=== PATIENT | female | born 1965 | race Caucasian/White ===

== ENCOUNTER → 2017-11-30 10:25 | Outpatient (CLI) | payer BC, SELFPAY | PROVIDERS: PCP Internal Medicine; Visit Provider Internal Medicine | DX: R07.89 Other chest pain (principal) | CPT/HCPCS: 93005 ==

== ENCOUNTER → 2017-12-06 09:43 | Outpatient (CLI) | payer BC, SELFPAY ==
--- NOTE | 2017-12-06 09:59 | XR_ITS ---
XR chest 2V HISTORY: ITS.REASON: LT CHEST PAIN,ASTHMA ORDERING PHYSICIAN: Jae Luz PATIENT AGE: 52 years COMPARISON: 01/06/2016 FINDINGS: The cardiomediastinal silhouette and pulmonary vascularity are within normal limits. There are slight increased markings in the left lower lobe which may be due to an area of atelectasis or infiltrate. Calcified nodes are present in the left perihilar region. There are degenerative changes in the thoracic spine with osteophyte formation. IMPRESSION: Patchy left lower lobe infiltrate
== END ==
PROVIDERS: PCP Internal Medicine; Visit Provider Internal Medicine
DX: R07.89 Other chest pain (principal); J45.909 Unspecified asthma, uncomplicated
CPT/HCPCS: 71046

== ENCOUNTER → 2018-08-12 15:31 | Outpatient (CLI) | payer BC, SELFPAY ==
--- NOTE | 2018-08-12 15:42 | CT_ITS ---
CT abdomen pelvis wo , REASON: LLQ PAIN,GROSS HEMATURIA, bilateral flank pain left greater than right with gross hematuria ORDERING PHYSICIAN: Jae Luz PATIENT AGE: 52 years COMPARISON: 02/18/2014 TECHNIQUE: Axial images obtained with sagittal and coronal reformats. All CT scans at the facility use one or more dose reduction, viz: automated exposure control, ma/kV adjustment per patient size (including targeted exams where dose is matched to indication, i.e. head), or iterative reconstruction technique. PROCEDURE: Oral Contrast: None IV Contrast: None . FINDINGS: Lower thorax: No acute finding The liver, gallbladder, spleen, adrenal glands, pancreas, and kidneys have an unremarkable unenhanced CT appearance. No renal or ureteral calculi. No hydronephrosis. No intestinal obstruction or free air. No evidence of appendicitis or diverticulitis. No pelvic mass abnormal fluid collection or focal inflammatory change of the pelvis. No urinary bladder stones. No acute bony findings. IMPRESSION: No acute abdominal or pelvic findings No evidence of renal or ureteral calculi
[2018-08-12 15:46] LABS: Basophils # 0.1 K/mm3 (0-0.2); Basophils % 1.1 % (0.1-2.0); Eosinophils # 0.4 K/mm3 (0.0-0.4); Eosinophils % 6.4 % (0.1-12.0); Hematocrit 43.1 % (37.0-47.0); Hemoglobin 14.4 g/dL (12.2-16.2); Lymphocytes # 1.7 K/mm3 (0.7-4.5); Lymphocytes % 28.2 % (10-50); Mean Corpuscular HGB Conc 33.3 g/dL (31.8-35.4); Mean Corpuscular Hemoglobin 28.6 pg (27.0-31.2); Mean Corpuscular Volume 85.9 fl (81-99); Mean Platelet Volume 7.3 fl (7.4-10.4); Monocytes # 0.3 K/mm3 (0.1-1.0); Monocytes % 4.6 % (1.7-9.3); Neutrophils # 3.7 K/mm3 (1.8-7.8); Neutrophils % 59.8 % (37.0-80.0); Platelet Count 203 K/mm3 (142-424); Red Blood Count 5.02 M/mm3 (4.20-5.40); Red Cell Distribution Width 13.8 % (11.5-17.5); White Blood Count 6.1 K/mm3 (4.8-10.8)
== END ==
PROVIDERS: Visit Provider Internal Medicine
DX: R10.32 Left lower quadrant pain (principal); R31.0 Gross hematuria
CPT/HCPCS: 36415; 74176; 85025

== ENCOUNTER 2019-08-29 11:29 | Observation (INO) ==
[2019-08-29 11:56] LABS: Microscopic, Urine URINE MICROSCOPIC (MICROSCOPIC)
[2019-08-29 11:59] LABS: Basophils # 0.1 K/mm3 (0-0.2); Basophils % 0.8 % (0.1-2.0); Eosinophils # 0.3 K/mm3 (0.0-0.4); Eosinophils % 4.8 % (0.1-12.0); Hematocrit 48.5 % (37.0-47.0); Hemoglobin 15.5 g/dL (12.2-16.2); Lymphocytes # 2.2 K/mm3 (0.7-4.5); Lymphocytes % 36.3 % (10-50); Mean Corpuscular Volume 87.1 fl (81-99); Mean Platelet Volume 7.5 fl (7.4-10.4); Monocytes # 0.3 K/mm3 (0.1-1.0); Monocytes % 4.6 % (1.7-9.3); Neutrophils # 3.3 K/mm3 (1.8-7.8); Neutrophils % 53.4 % (37.0-80.0); Platelet Count 247 K/mm3 (142-424); Red Blood Count 5.57 M/mm3 (4.20-5.40); Red Cell Distribution Width 14.6 % (11.5-17.5); White Blood Count 6.2 K/mm3 (4.8-10.8)
[2019-08-29 12:01] LABS: Appearance,Urine CLEAR (Clear); Bilirubin,Urine Negative (Negative); Blood, Urine TRACE-I (Negative); Color,Urine YELLOW (Yellow); Glucose,Urine (UA) Negative (Negative); Ketones,Urine Negative (Negative); Leukocyte Esterase,Urine Negative (Negative); Protein,Urine Negative (Negative); Specific Gravity, Urine 1.025 (1.005-1.030); Urobilinogen,Urine 0.2 EU/dl (0.2)
[2019-08-29 12:03] LABS: Albumin Level 4.9 g/dl (3.5-5.0); Albumin/Globulin Ratio 1.4 (1.1-1.8); Anion Gap 10.5 mEq/L (5-15); Bilirubin,Total 0.6 mg/dl (0.2-1.3); Calcium 10.2 mg/dl (8.4-10.2); Globulin 3.4 g/dL (1.3-3.2); Total Protein,Serum 8.3 g/dl (6.3-8.2)
[2019-08-29 12:12] LABS: RBC,Urine Occasional #/hpf (0-3); Squamous Epithelial Cell,Urine Occasional #/hpf (0-5)
--- NOTE | 2019-08-29 15:41 | Emergency Department Note ---
ED Disposition Clinical Impression: Acute pancreatitis Disposition: Admitted as Observation Condition on Discharge: Good Instructions: DI for Acute Abdomen Additional Instructions: Spoke to Dr. Phan for admission. Referrals: Jae Luz [Primary Care Provider] - - Critical Care Critical Care Time: No Attestation: On 08/29/19, the high probability of a clinically significant, sudden or life threatening deterioration of the following system(s) required my full and direct attention, intervention and personal management. The time I documented below is in addition to time spent performing reported procedures but includes the following listed in this critical care notation. Medical Decision Making - Medical Records Medical records reviewed: Yes: I reviewed the patient's medical records. - [place] Inquiry Pt receiving controlled substance: No Vital Signs: 08/29/19 11:47 08/29/19 12:35 08/29/19 13:30 Temperature 98.2 F Temperature Source Oral Pulse Rate [Left Radial] 69 63 60 Respiratory Rate 16 16 Blood Pressure [Right Arm] 127/86 103/54 L 97/52 L Blood Pressure Mean [Right Arm] 99 70 67 Blood Pressure Source [Right Arm] Automatic Cuff Blood Pressure Position [Right Arm] Sitting Sitting 02 Sat by Pulse Oximetry 98 100 97 Oxygen Delivery Method Room Air Room Air 08/29/19 14:30 Temperature Temperature Source Pulse Rate [Left Radial] 65 Respiratory Rate Blood Pressure [Right Arm] 98/53 L Blood Pressure Mean [Right Arm] 68 Blood Pressure Source [Right Arm] Blood Pressure Position [Right Arm] 02 Sat by Pulse Oximetry 98 Oxygen Delivery Method - Lab Data Lab results reviewed: Yes: I reviewed the patient's lab results. Lab Results 08/29/19 11:34: Urine Color Yellow, Urine Appearance Clear, Urine pH 7.0, Ur Specific [place] 1.025, Urine Protein Negative, Urine Glucose (UA) Negative, Urine Ketones Negative, Urine Blood Trace-i, Urine Nitrate Negative, Urine Elijah irubin Negative, Urine Urobilinogen 0.2, Ur Leukocyte Esterase Negative, Urine RBC Occasional, Urine WBC None, Ur Squamous Epith Cells Occasional, Urine Bacteria None 08/29/19 11:43: WBC 6.2, RBC 5.57 H, Hgb 15.5, Hct 48.5 H, MCV 87.1, MCH 27.8, MCHC 32.0, RDW 14.6, Plt Count 247, MPV 7.5, Neut % (Auto) 53.4, Lymph % (Auto) 36.3, [place] % (Auto) 4.6, Eos % (Auto) 4.8, Baso % (Auto) 0.8, Neut # (Auto) 3.3, Lymph # (Auto) 2.2, [place] # (Auto) 0.3, Eos # (Auto) 0.3, Baso # (Auto) 0.1 08/29/19 11:43: Sodium 138, Potassium 3.5, Chloride 102, Carbon Dioxide 29, Anion Gap 10.5, BUN 11, Creatinine 0.70, Estimated Creat Clear 112, Estimated GFR 88, Est GFR ( Amer) 106, Glucose 117 H, Calcium 10.2, Total Bilirubin 0.6, AST 29, ALT 35, Alkaline Phosphatase 77, Total Protein 8.3 H, Albumin 4.9, Globulin 3.4 H, Albumin/Globulin Ratio 1.4, Amylase 131 H, Lipase 828 H Result diagrams: 08/29/19 11:43 08/29/19 11:43 Orders (Tests/Meds): ED MEDICATIONS Discontinued Medications Generic Name Dose Route Start Last Admin Trade Name Freq PRN Reason Stop Dose Admin Hydromorphone HCl 1 mg 08/29/19 11:58 08/29/19 11:55 Dilaudid 2mg/Ml Syringe IV 08/29/19 11:59 1 mg ONCE ONE Administration Sodium Chloride 1,000 mls @ 999 mls/hr 08/29/19 12:00 08/29/19 11:55 Sod Chlor 0.9% 1000ml Bag IV 08/29/19 13:00 999 mls/hr .Q1H1M EDI Administration Ketorolac Tromethamine 30 mg 08/29/19 11:54 08/29/19 11:55 Toradol 30mg/Ml Vial IV 08/29/19 11:55 30 mg ONCE ONE Administration Ondansetron HCl 4 mg 08/29/19 11:54 08/29/19 11:55 Zofran 4mg/2ml Vial IV 08/29/19 11:55 4 mg ONCE ONE Administration - CT Data CT Scan: Abdomen Time Received: 15:[address] Reviewed: Yes: I have reviewed the patient's CT results, I discussed the CT results w/the radiologist Preliminary Findings: Normal/NAD Abdominal Pain HPI - General Chief Complaint: Abdominal Pain Stated Complaint: right side pain Time Seen by Provider: 08/29/19 13:00 Mode of Arrival: Ambulatory Source of Information: Patient Limitations: No Limitations Description of Symptoms (Recalled from ER Triage Doc. 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 PT C/O NAUSEA PT DENIES FEVER, BACK PAIN OR UTI SYMPTOMS. - History of Present Illness HPI narrative: 53-year-old female presents the ED with right lower quadrant abdominal pain. She states the pain also radiates to the right flank. She states the pain started around 7 AM this morning and is progressively gotten worse. She describes the pain as sharp and tearing. Rates her pain 10 out of 10. Also has nausea with no vomiting nor diarrhea. Alleviating factors include laying on the right side with no movement. Exacerbating factors include movement, laughing coughing sneezing. Patient denies any recent fever shakes or chills. Patient also denies any alcohol consumption. Only medication she takes r-PA as needed medications for arthritis MD complaint: abdominal pain, flank pain Onset (ago): hour(s) Consistency: constant Location: RLQ Severity: severe Severity scale (1-10): 10 Quality: stabbing Radiation: R flank Migration to: periumbilical Relieving factors: rest Exacerbating factors: movement Associated symptoms: denies other symptoms - Related Data Home Medications Medication Instructions Recorded Confirmed No Known Home Medications 08/29/19 08/29/19 Allergies Allergy/AdvReac Type Severity Reaction Status Date / Time erythromycin base Allergy Unknown Verified 08/29/19 11:55 [ERYTHROMYCIN BASE] [facility] History - Hepatitis A Screen Drug use history?: No High risk sexual behaviors?: No History of sexually transmitted infection?: No Currently employed?: No Childcare worker?: No Do you have indoor plumbing?: Yes Do you have electricity?: Yes Attestation statement:: This patient has been screened for Hepatitis A risk factors. I have reviewed the patient's past medical history: Yes - Social History Smoking Status: Current every day smoker Tobacco Type: cigarettes # Packs/Day (cigarettes): 1 Alcohol Intake: never Occupational Status: other Housing: house Household Members: other ROS Obtained: Yes All systems reviewed & no additional complaints - Constitutional Constitutional: Reports system reviewed and no additional complaints, except as docu - Eyes Eyes: Reports system reviewed and no additional complaints, except as docu - ENT Ears, Nose, Mouth, and Throat: Reports system reviewed and no additional complaints, except as docu - Cardiovascular Cardiovascular: Reports system reviewed and no additional complaints, except as docu - Respiratory Respiratory: Yes system reviewed and no additional complaints, except as docu - Gastrointestinal Gastrointestingal: Reports: system reviewed and no additional complaints, except as docu - Genitourinary Male Genitourinary: Reports system reviewed and no additional complaints, except as docu Female Genitourinary: Reports system reviewed and no additional complaints, except as docu - Musculoskeletal Musculoskeletal: Reports system reviewed and no additional complaints, except as docu - Integumentary/Breasts Skin/Breast: Reports system reviewed and no additional complaints, except as docu - Neurologic Neurologic: Reports system reviewed and no additional complaints, except as docu - Endocrine Endocrine: Reports system reviewed and no additional complaints, except as docu - Hematologic/Lymphatic Henatologic/Lymphatic: Reports system reviewed and no additional complaints, except as docu - Allergic/Immunologic Allergic/Immunologic: Reports system reviewed and no additional complaints, except as docu Physical Exam - General General appearance: alert, anxious - Head Head exam: atraumatic, normocephalic - Eye Eye exam: Present: normal appearance, PERRL, EOMI - ENT ENT exam: Present: normal exam, normal oropharynx - Neck Neck exam: Present: normal inspection, full ROM - Chest Chest inspection: Present: normal inspection - Respiratory Respiratory exam: Present: normal lung sounds bilaterally - Cardiovascular Cardiovascular exam: Present: regular rate, normal rhythm - Abdominal Exam Abdominal exam: Present: tenderness, diminished bowel sounds, psoas sign, obturator sign Abdominal tenderness: Present: RLQ, moderate - Extremities Exam Extremities exam: Present: normal inspection - Back Exam Back exam: Present: normal inspection, full ROM - Neurological Exam Neurological exam: Present: alert, oriented X3, CN II-XII intact - Psychiatric Psychiatric exam: Present: normal affect - Skin Skin exam: Present: warm, dry, intact - Lymphatic Lymphatic Findings: no adenopathy
[2019-08-30 07:23] LABS: Anion Gap 8.1 mEq/L (5-15); Bilirubin,Total 0.6 mg/dl (0.2-1.3)
[2019-08-30 07:24] LABS: Albumin Level 3.4 g/dl (3.5-5.0); Albumin/Globulin Ratio 1.4 (1.1-1.8); Globulin 2.5 g/dL (1.3-3.2); Total Protein,Serum 5.9 g/dl (6.3-8.2)
[2019-08-30 07:30] LABS: Basophils % 0.7 % (0.1-2.0); Eosinophils # 0.3 K/mm3 (0.0-0.4); Eosinophils % 5.9 % (0.1-12.0); Lymphocytes # 2.2 K/mm3 (0.7-4.5); Mean Corpuscular HGB Conc 33.3 g/dL (31.8-35.4); Mean Corpuscular Volume 85.7 fl (81-99); Monocytes # 0.3 K/mm3 (0.1-1.0); Monocytes % 5.9 % (1.7-9.3); Neutrophils # 2.2 K/mm3 (1.8-7.8); Neutrophils % 43.6 % (37.0-80.0); Platelet Count 182 K/mm3 (142-424); Red Blood Count 4.43 M/mm3 (4.20-5.40); Red Cell Distribution Width 13.3 % (11.5-17.5); White Blood Count 4.9 K/mm3 (4.8-10.8)
[2019-08-30 07:46] LABS: Hemoglobin 12.8 g/dL (12.2-16.2)
--- NOTE | 2019-08-30 08:27 | H&P/Discharge Summary ---
General - General Admission date:: 08/29/19 Discharge date: 08/30/19 *Admission Date: 08/29/19 *Chief complaint: Right lower quadrant abdominal pain *History of present illness: 53-year-old white female with very minimal past medical history, who does not take chronic medications, but does take as needed NSAIDs and prednisone for a variety of tendinitis/bursitis syndromes but not on a regular basis, who over the past week has had the insidious worsening and improving pattern of right lower quadrant pain that is relieved with bowel movements. However this worsened over the day yesterday when she was at work and in the mid afternoon she felt as if the pain had intensified to a point where "somebody shot me." Given the intensity of the pain she thought she might have appendicitis and presented to the emergency department where work-up was done including CT scan of the abdomen and pelvis that was negative for appendicitis pathology and was actually negative in the entirety of the scan. However lab work was done showing normal white count, normal electrolytes and normal urinalysis but significant elevation of amylase and lipase was noted. Patient's history is negative for easily discernible causes of pancreatitis-she does not drink alcohol, does not take suspicious medications and has never had a history of gallstones with no evidence of gallstones on the CT scan. She was admitted overnight for IV fluids and pain control as well as observation. [facility] History I have reviewed the patient's past medical history: Yes Medical History: Reports:: Arrhythmia Denies:: Diabetes Mellitus Type 1, Diabetes Mellitus Type 2 *Have you ever received a pneumonia vaccine?: No *Have you received a flu vaccine this season?: No Other Medical History: Reports: Arthritis Laterality Cases: Left: Arthroscopy Shoulder, Bilateral: Tonsillectomy Other Surgeries: Yes: , Tubal Ligation, Other (heel surgery) - *Social History Smoking Status: Current every day smoker Tobacco Type: cigarettes # Packs/Day (cigarettes): 1 Alcohol Intake: never *Occupational Status:: employed Housing: house Household Members: significant other, family *Travel in the last 8 weeks: None Family Hx:: No significant family history Review of Systems - Review of Systems Review of systems:: pertinent systems reviewed and negative unless documented below On review of systems patient notes that she occasionally has right-sided lower flank pain that causes her to have some leg pain specifically when she is trying to abduct her thigh and occasionally she will have sharp pains in the right lower back and temporary immobility of her leg. She has no bowel or bladder incontinence, no edema in the leg and does not recall any injury. Other than that does not have classic sciatica symptoms. Other than her abdominal pain as noted above a complete 10 point review of systems is negative Exam Vital signs and Labs for Last 24 Hours: Temp Pulse Resp BP Pulse Ox 97.8 F 50 L 18 102/54 L 98 08/30/19 04:00 08/30/19 04:00 08/30/19 04:00 08/30/19 04:00 08/30/19 04:00 Laboratory Results - last 24 hr 08/29/19 11:34: Urine Color Yellow, Urine Appearance Clear, Urine pH 7.0, Ur Specific [place] 1.025, Urine Protein Negative, Urine Glucose (UA) Negative, Urine Ketones Negative, Urine Blood Trace-i, Urine Nitrate Negative, Urine Bilirubin Negative, Urine Urobilinogen 0.2, Ur Leukocyte Esterase Negative, Urine RBC Occasional, Urine WBC None, Ur Squamous Epith Cells Occasional, Urine Bacteria None 08/29/19 11:43: WBC 6.2, RBC 5.57 H, Hgb 15.5, Hct 48.5 H, MCV 87.1, MCH 27.8, MCHC 32.0, RDW 14.6, Plt Count 247, MPV 7.5, Neut % (Auto) 53.4, Lymph % (Auto) 36.3, [place] % (Auto) 4.6, Eos % (Auto) 4.8, Baso % (Auto) 0.8, Neut # (Auto) 3.3, Lymph # (Auto) 2.2, [place] # (Auto) 0.3, Eos # (Auto) 0.3, Baso # (Auto) 0.1 08/29/19 11:43: Sodium 138, Potassium 3.5, Chloride 102, Carbon Dioxide 29, Anion Gap 10.5, BUN 11, Creatinine 0.70, Estimated Creat Clear 112, Estimated GFR 88, Est GFR ( Amer) 106, Glucose 117 H, Calcium 10.2, Total Bilirubin 0.6, AST 29, ALT 35, Alkaline Phosphatase 77, Total Protein 8.3 H, Albumin 4.9, Globulin 3.4 H, Albumin/Globulin Ratio 1.4, Amylase 131 H, Lipase 828 H 08/30/19 06:35: WBC 4.9, RBC 4.43, Hgb 12.8 D, Hct 38.0, MCV 85.7, MCH 28.6, MCHC 33.3, RDW 13.3, Plt Count 182 D, MPV 8.0, Neut % (Auto) 43.6, Lymph % (Auto) 44.0, [place] % (Auto) 5.9, Eos % (Auto) 5.9, Baso % (Auto) 0.7, Neut # (Auto) 2.2, Lymph # (Auto) 2.2, [place] # (Auto) 0.3, Eos # (Auto) 0.3, Baso # (Auto) 0.0 08/30/19 06:35: Sodium 139, Potassium 4.1, Chloride 112 H, Carbon Dioxide 23 D, Anion Gap 8.1, BUN 11, Creatinine 0.80, Estimated Creat Clear 96, Estimated GFR 75, Est GFR ( Amer) 91, Glucose 74 D, Calcium 9.0 D, Total Bilirubin 0.6, AST 19 D, ALT 20 D, Alkaline Phosphatase 58, Total Protein 5.9 L D, Albumin 3.4 L D, Globulin 2.5, Albumin/Globulin Ratio 1.4, Amylase 40 D, Lipase 70 I & O for Last 24 hours: Intake & Output 08/27/19 08/28/19 08/29/19 08/30/19 11:59 11:59 11:59 11:59 Intake Total 1125 / 1125 Output Total 500 / 500 Balance 625 / 625 Weight 167 lb 162 lb 7 oz - *Routine HEENT Exam Head: Present: normocephalic Eye: Present: EOMI, PERRL ENT: Present: mucous membranes moist - *Routine Neck Exam Present: supple. Absent: lymphadenopathy - *Routine Respiratory Exam Present: CTA bilaterally - *Routine Cardiovascular Exam Present: RRR - *Routine Abdominal Exam Present: soft, normoactive bowel sounds. Absent: tenderness Comments: Very minimal right lower quadrant pain on admission exam but no epigastric pain, no periumbilical or flank bruising, no rebound, peritoneal signs or guarding - *Routine Extremities Exam Absent: cyanosis, clubbing, edema - *Routine Skin Exam Present: warm. Absent: rash - *Routine Neurological Exam Present: alert, oriented X3 - Detailed Eye Exam Eyelids: Left normal inspection Hospital Course Hospital Course: Patient was given clear liquids, IV fluids and a very minimal amount of pain medication. She was observed overnight and labs were repeated. This morning her lab values are entirely normal including complete normalization of her amylase and lipase levels. She feels good. She was fed a low-fat breakfast and tolerated this well. Plan will be to discharge her home, I instructed her to take no NSAIDs or prednisone until she sees her regular physician, Dr. Luz in the outpatient setting. The right lower back pain and musculoskeletal symptoms she complains of in the review of systems seem to be unrelated to the abdominal pathology and may need to be evaluated with musculoskeletal imaging. I do not really have a good explanation for elevated amylase and lipase unless she had a mild enteritis that caused this elevation or an exceedingly mild episode of pancreatitis. Patient may warrant a gallbladder ultrasound as an outpatient to be complete in regards to imaging of the biliary tract given the elevated amylase and lipase. Results Labs on day of discharge: Labs from last 24 hours 08/30/19 08/30/19 08/29/19 06:35 06:35 11:43 WBC 4.9 RBC 4.43 Hgb 12.8 D Hct 38.0 MCV 85.7 MCH 28.6 MCHC 33.3 RDW 13.3 Plt Count 182 D MPV 8.0 Neut % (Auto) 43.6 Lymph % (Auto) 44.0 [place] % (Auto) 5.9 Eos % (Auto) 5.9 Baso % (Auto) 0.7 Neut # (Auto) 2.2 Lymph # (Auto) 2.2 [place] # (Auto) 0.3 Eos # (Auto) 0.3 Baso # (Auto) 0.0 Sodium 139 138 Potassium 4.1 3.5 Chloride 112 H 102 Carbon Dioxide 23 D 29 Anion Gap 8.1 10.5 BUN 11 11 Creatinine 0.80 0.70 Estimated Creat Clear 96 112 Estimated GFR 75 88 Est GFR ( Amer) 91 106 Glucose 74 D 117 H Calcium 9.0 D 10.2 Total Bilirubin 0.6 0.6 AST 19 D 29 ALT 20 D 35 Alkaline Phosphatase 58 77 Total Protein 5.9 L D 8.3 H Albumin 3.4 L D 4.9 Globulin 2.5 3.4 H Albumin/Globulin Ratio 1.4 1.4 Amylase 40 D 131 H Lipase 70 828 H Urine Color Urine Appearance Urine pH Ur Specific [place] Urine Protein Urine Glucose (UA) Urine Ketones Urine Blood Urine Nitrate Urine Bilirubin Urine Urobilinogen Ur Leukocyte Esterase Urine RBC Urine WBC Ur Squamous Epith Cells Urine Bacteria 08/29/19 08/29/19 11:43 11:34 WBC 6.2 RBC 5.57 H Hgb 15.5 Hct 48.5 H MCV 87.1 MCH 27.8 MCHC 32.0 RDW 14.6 Plt Count 247 MPV 7.5 Neut % (Auto) 53.4 Lymph % (Auto) 36.3 [place] % (Auto) 4.6 Eos % (Auto) 4.8 Baso % (Auto) 0.8 Neut # (Auto) 3.3 Lymph # (Auto) 2.2 [place] # (Auto) 0.3 Eos # (Auto) 0.3 Baso # (Auto) 0.1 Sodium Potassium Chloride Carbon Dioxide Anion Gap BUN Creatinine Estimated Creat Clear Estimated GFR Est GFR ( Amer) Glucose Calcium Total Bilirubin AST ALT Alkaline Phosphatase Total Protein Albumin Globulin Albumin/Globulin Ratio Amylase Lipase Urine Color Yellow Urine Appearance Clear Urine pH 7.0 Ur Specific [place] 1.025 Urine Protein Negative Urine Glucose (UA) Negative Urine Ketones Negative Urine Blood Trace-i Urine Nitrate Negative Urine Bilirubin Negative Urine Urobilinogen 0.2 Ur Leukocyte Esterase Negative Urine RBC Occasional Urine WBC None Ur Squamous Epith Cells Occasional Urine Bacteria None DS: Diagnosis - Discharge Diagnosis (1) Hyperamylasemia Status: Resolved (2) Right lower quadrant abdominal pain Status: Resolved Discharge Plan - Patient Discharge Instructions ACTIVITY: Continue current activity DIET: low fat, low cholesterol Patient Instructions: Acute Pancreatitis, DI for Pancreatitis - Follow up Plan Follow up with: Jae Luz [Primary Care Provider] - 09/02/19 Disposition: Home, Self-Chcf Medications: Home Medications Medication Instructions Recorded Confirmed Type Famotidine [Pepcid 20mg Tablet] 20 mg PO DAILY PRN 08/29/19 08/29/19 History Meloxicam 15 mg PO DAILY PRN 08/29/19 08/29/19 History predniSONE [Deltasone 20mg 20 mg PO DAILY PRN 08/29/19 08/29/19 History tablet] Prescriptions/Medication Reconciliation: Discontinued predniSONE [Deltasone 20mg tablet] 20 mg PO DAILY PRN PRN Reason: tendonitis Meloxicam 15 mg PO DAILY PRN PRN Reason: pain Famotidine [Pepcid 20mg Tablet] 20 mg PO DAILY PRN PRN Reason: gerd - Problem Reconciliation Problems Reviewed?: Yes
== END 2019-08-30 09:45 | disposition home or self-care (01) ==
LOC: ER 11:29 → 2ND 11:29
PROVIDERS: ADMIT Internal Medicine Adolescent Medicine; ATTEND Internal Medicine Adolescent Medicine
CPT/HCPCS: 74176; 80053; 81001; 82150; 83690; 85025; 96365; 96375; 96376; 99284; G0378; J2405

== ENCOUNTER → 2019-09-04 08:02 | Outpatient (CLI) | payer BC, SELFPAY ==
--- NOTE | 2019-09-04 08:09 | MM_ITS ---
PROCEDURE: MM DIG SCREENING MAMM BI W/CAD BILATERAL DIGITAL BREAST TOMOSYNTHESIS INCLUDED Patient Age:53Y CLINICAL INDICATION: SCREEENING right breast soreness. No hormones. No new complaints otherwise Family history maternal aunt with breast cancer COMPARISON: No exams were available for comparison. Baseline study TECHNIQUE: Standard CC and MLO images were obtained. R2 CAD reviewed. Bilateral digital breast tomosynthesis included FINDINGS: scattered fibroglandular elements most evident towards superior breast with diffuse mild fatty replacement. mild asymmetry No suspicious dominant mass or calcifications.. Minor densities bilaterally dissipate between one view and another supporting these are overlapping fibroglandular elements Both right and left breast revealed no areas of significant concern. Follow-up 1 year bilateral IMPRESSION: . Baseline mammogram reveals no areas of significant concern. Bilateral follow-up 1 year recommended the Left breast BI-RAD Category: 2 Benign Finding(s) FOLLOW-UP: 1YR 1 Year Follow-up (A letter has been sent to the patient regarding results of the study.) Dictated by: Frankie Perez MD 09/09/2019 10:25 Electronically signed by Frankie Perez MD in [place] 09/09/2019 10:25
--- NOTE | 2019-09-04 08:30 | US_ITS ---
PROCEDURE: US ABDOMEN COMPLETE CLINICAL INDICATION: ELEVATED LIPASE/AMYLASE, RLQ PAIN COMPARISON: CT ABDOMEN PELVIS WO CON from 08/29/2019 FINDINGS: PANCREAS: Unremarkable. No obvious mass or abnormal fluid collection. No ductal dilatation LIVER: No focal liver lesions demonstrated. Homogeneous echogenicity. No intrahepatic biliary ductal dilatation evident. There is appropriate direction of blood flow within a non dilated portal vein RIGHT KIDNEY: Unremarkable. Normal size and echogenicity. No hydronephrosis LEFT KIDNEY: Unremarkable. Normal size and echogenicity. No hydronephrosis GALLBLADDER: No gallstones, gallbladder wall thickening, pericholecystic fluid, or biliary dilatation. Common tail artifact noted along the anterior aspect of the gallbladder wall consistent with cholesterolosis. AORTA: No evidence of aneurysmal dilatation. SPLEEN: Unremarkable. Normal size and echogenicity ASCITES: None demonstrated. IMPRESSION: 1. Cholesterolosis/adenomyomatosis of the gallbladder. 2. No gallstones or other significant anomaly. Dictated by: Colby Savage MD 09/04/2019 17:20 Electronically signed by oClby Savage MD in [place] 09/04/2019 17:20
== END ==
PROVIDERS: PCP Internal Medicine; Visit Provider Internal Medicine
DX: Z12.31 Encounter for screening mammogram for malignant neoplasm of breast (principal); R10.31 Right lower quadrant pain; R74.8 Abnormal levels of other serum enzymes
CPT/HCPCS: 76700; 77063; 77067

== ENCOUNTER → 2019-09-12 12:49 | Outpatient (CLI) | payer BC, SELFPAY ==
--- NOTE | 2019-09-12 12:56 | NM_ITS ---
PROCEDURE: NM HEPATOBILIARY W PHARM CLINICAL INDICATION: RUQ PAIN COMPARISON: No exams were available for comparison TECHNIQUE: DOSE: 8.3 mCi technetium Choletec. 1.4 mcg of CCK FINDINGS: Homogeneous activity is present within the hepatic parenchyma. Activity is present in the gallbladder by 10 minutes. Activity is present in the small bowel by 25 minutes. The gallbladder ejection fraction is calculated to be 39 percent. CCK-The patient did report pain during CCK infusion. IMPRESSION: 1. No evidence of cystic or common duct obstruction 2. Gallbladder ejection fraction it is along lower limits of normal. Pain was reported with CCK infusion Dictated by: Colby Savage MD 09/12/2019 16:32 Electronically signed by Colby Savage MD in [place] 09/12/2019 16:32
== END ==
PROVIDERS: PCP Internal Medicine; Visit Provider Internal Medicine
DX: R10.11 Right upper quadrant pain (principal)
CPT/HCPCS: 78227; A9537; J2805

== ENCOUNTER → 2019-11-19 09:18 | Outpatient (CLI) | payer BC, SELFPAY ==
--- NOTE | 2019-11-19 09:44 | ECG_ITS ---
APPROVED REPORT Exam: Resting ECG HR:47 bpm ECG Measurements Heart Rate 47 AXES TN 140 P 68 QRSd 92 QRS 85 QT 428 T 11 QTc 378 <Conclusion> Marked sinus bradycardia ST abnormality, possible digitalis effect vs electrolyte disturbance Abnormal ECG Electronically signed by : Shashi Gregorio, 11/20/2019 05:54:36
[2019-11-19 10:01] LABS: Basophils # 0.1 K/mm3 (0-0.2); Basophils % 0.9 % (0.1-2.0); Eosinophils # 0.4 K/mm3 (0.0-0.4); Eosinophils % 6.3 % (0.1-12.0); Hematocrit 45.5 % (37.0-47.0); Hemoglobin 14.7 g/dL (12.2-16.2); Lymphocytes # 2.1 K/mm3 (0.7-4.5); Lymphocytes % 30.9 % (10-50); Mean Corpuscular HGB Conc 32.2 g/dL (31.8-35.4); Mean Corpuscular Hemoglobin 27.9 pg (27.0-31.2); Mean Corpuscular Volume 86.6 fl (81-99); Mean Platelet Volume 7.7 fl (7.4-10.4); Monocytes # 0.5 K/mm3 (0.1-1.0); Monocytes % 7.4 % (1.7-9.3); Neutrophils # 3.6 K/mm3 (1.8-7.8); Neutrophils % 54.5 % (37.0-80.0); Platelet Count 225 K/mm3 (142-424); Red Blood Count 5.25 M/mm3 (4.20-5.40); Red Cell Distribution Width 14.4 % (11.5-17.5); White Blood Count 6.6 K/mm3 (4.8-10.8)
[2019-11-19 10:39] LABS: Alanine Aminotransferase 25 U/L (12-78); Albumin Level 4.7 g/dl (3.5-5.0); Albumin/Globulin Ratio 1.6 (1.1-1.8); Alkaline Phosphatase 82 U/L (38-126); Anion Gap 8.3 mEq/L (5-15); Aspartate Amino Transferase 24 U/L (14-36); Bilirubin,Total 0.3 mg/dl (0.2-1.3); Blood Urea Nitrogen 21 mg/dl (7-17); Calcium 9.8 mg/dl (8.4-10.2); Carbon Dioxide 28 mmol/L (22.0-30.0); Chloride 106 mmol/L (98-107); Estimated Glomerular Filt Rate 88 ml/min (>60); GFR (African American) 106 ML/MIN (>60); Globulin 2.9 g/dL (1.3-3.2); Glucose 89 mg/dl (74-100); Potassium 4.3 mmoL/L (3.5-5.1); Sodium 138 mmol/L (136-145); Total Protein,Serum 7.6 g/dl (6.3-8.2)
[2019-11-20 14:13] LABS: Covid-19 Nasal PCR Sendout Lex NOT DETECTED
== END ==
PROVIDERS: Visit Provider Surgery
DX: Z01.818 Encounter for other preprocedural examination (principal); K82.8 Other specified diseases of gallbladder
CPT/HCPCS: 36415; 80053; 85025; 93005; U0004

== ENCOUNTER 2019-11-21 09:23 | Day surgery (SDC) | payer BC, SELFPAY ==
--- NOTE | 2019-11-18 09:11 | SUR.PREOP ---
11/18/2019 @ 0910--PHONE CALL MADE TO PATIENT. PATIENT UNDERSTANDS THAT LAB WORK AND COVID TESTING NEEDS TO BE COMPLETED @ 0900 ON 11/19/2019. PATIENT UNDERSTANDS IF LAB WORK AND COVID-19 TESTS ARE NOT COMPLETED BY 12PM ON THAT DATE, THE SURGERY SCHEDULED WILL BE CANCELLED AND RESCHEDULED FOR ANOTHER TIME.
[2019-11-20 08:41] VITALS: BMI 26.2
[2019-11-21] VITALS (15 sets, daily range): BP systolic 116–148; BP diastolic 70–82; PULSE 46–74; RESP 12–20; TEMP 36.4–43; O2SAT 91–99; BMI 26.2
[2019-11-21 10:25] LABS: Urine Pregnancy, HCG Qual. Negative (Negative)
--- NOTE | 2019-11-21 11:58 | P.PN_ITS ---
[facility] Anesthesia Checklist - Structural Data Admitted From: Home Planned Operative Procedure/s: bennett buenoe Consent for Planned Operative Procedure(s) Verified: Yes - Additional verifications Anesthesia Reactions: No Hx Blood Transfusions: No Blood Transfusion Reaction: No - Airway Assessment C-Spine Mobility Assessed: Yes TMJ Mobility Assessed: Yes Dentition: Good Dentition - Neurological Assessment Level of Consciousness: Awake, Alert, Appropriate - Anesthesia Plan Anesthesia Risk discussed: Yes Anesthesia Plan: Verified ASA Class: III Anesthesia Type: General [facility] History I have reviewed the patient's past medical history: Yes Medical History: Reports:: Arrhythmia Denies:: Cancer, Diabetes Mellitus Type 1, Diabetes Mellitus Type 2, Internal Pacemaker, MRSA, Seizures *Have you ever received a pneumonia vaccine?: No *Have you received a flu vaccine this season?: No Other Medical History: Reports: Arthritis. Denies: Blood Transfusion Reaction Anesthesia experience/problems:: none Laterality Cases: Left: Arthroscopy Shoulder, Bilateral: Tonsillectomy Other Surgeries: Yes: , Tubal Ligation, Other. No: Pacemaker Amputation: No Fractures: No - *Social History Educational Level: Completed High School Smoking Status: Current every day smoker Tobacco Type: cigarettes # Packs/Day (cigarettes): 1 Alcohol Intake: never Substance Use Type: denies use *Occupational Status:: employed Housing: house Household Members: significant other *Travel in the last 8 weeks: None Family Hx:: Cancer, Coronary Artery Disease, Other
--- NOTE | 2019-11-21 12:29 | HMH.OPNOTE ---
Date of procedure: 11/21/19 Pre-op Diagnosis:: Biliary dyskinesia Post-op Diagnosis:: Chronic cholecystitis Procedure performed:: Laparoscopic cholecystectomy Surgeon:: Ykaov Garcia MD MODEL MAKER FIREARMS:: Catrachito Resendiz Anesthesia: GETA Estimated blood loss (mL): 25 Operative findings:: Gallbladder distention with wall thickening Severe pericholecystic fat stranding (particularly in and around infundibulum) Operative note:: After informed consent was obtained, the patient was taken to the operating room and placed in the supine position. General anesthesia was induced and the abdomen was prepped and draped in a sterile fashion. After infiltration with local anesthetic an infraumbilical incision was made. A Veress needle was placed in position. The abdomen was insufflated. A 5 mm optical trocar was placed in position. Under direct visualization, a 12 mm trocar was placed in the subxiphoid position and 2 additional 5 mm trocars were placed in the right upper quadrant. The gallbladder was elevated up and over the liver margin. The tissue around the cystic duct was carefully dissected. 3 clips were placed proximally and the duct was transected with harmonic gabby. Harmonic gabby were then utilized to dissect the gallbladder away from the liver margin with careful attention to the control of the cystic artery. The gallbladder was placed in a retrieval bag and removed through the subxiphoid trocar site. The right upper quadrant was thoroughly irrigated. No active bleeding or bile leak was noted. Fascia at the subxiphoid trocar site was reapproximated utilizing the NeoClose device. The remaining trocars were removed. All wounds were irrigated and skin was closed with 4-0 Monocryl in a subcuticular fashion. Steri-Strips were applied. The patient's anesthetic agents were reversed and extubation was completed prior to transfer to recovery in stable condition. Condition: stable Disposition: PACU Specimens:: Gallbladder and contents Complications:: No immediate
--- NOTE | 2019-11-21 12:38 | P.PN_ITS ---
[facility] Anesthesia Record Part I Intake, IV Amount: 1,500 Estimated blood loss (mL): 0 Urine output (mL): 0 Blood Pressure: 148/79 SaO2: 97 Pulse Rate: 69 Respiratory Rate: 12 Temperature: 99.1 F Patient is:: Awake, Stable Stable to PACU at:: 12:35
--- NOTE | 2019-11-21 13:35 | P.PN_ITS ---
[facility] Anesthesia Record Part II Discharge Time: 13:05 Destination: [facility] PACU nurse assessment reviewed?: Yes Patient Condition:: Good Anesthesia Complications:: None Swallowing reflex intact?: Yes Cyanosis?: No Blood Pressure: 147/70 Pulse Rate: 50 Temperature: 98 F Mental Status: Alert & Oriented Pain level:: 7 Nausea and/or vomitting:: None Intake, IV Amount: 1,500
--- NOTE | 2019-11-21 13:50 | PC.NURSE ---
Pt stable, VSS, pain 5, No N/V, having mild lightheadedness when moves too quickly. Pleasant and cooperative, smiling and talkative as being discharge. Dad driving her home. No C/O at time of discharge
== END 2019-11-21 13:50 | disposition home or self-care (01) ==
PROVIDERS: PCP Internal Medicine; Visit Provider Surgery
PROC: 0FT44ZZ Resection of Gallbladder, Percutaneous Endoscopic Approach (ICD-10-PCS; CPT 47562; principal; 2019-11-21 11:15)
DX: K81.1 Chronic cholecystitis (principal)
CPT/HCPCS: 47562; 81025; 96374; J2405; J2710

== ENCOUNTER 2019-11-28 20:28 | Emergency (ER) | payer BC, SELFPAY ==
[2019-11-28 20:40] VITALS: BP 106/52; PULSE 64; RESP 22; TEMP 36.6; O2SAT 98; BMI 21.6
--- NOTE | 2019-11-28 20:48 | XR_ITS ---
PROCEDURE: XR CHEST PORTABLE Patient Age:54Y CLINICAL HISTORY: fall. Injuries. Smoker. Patient had a left rotator cuff surgeries in the past COMPARISON: CXR1 CHEST-PORTABLE from 12/02/2015 CXR CHEST(2 VIEWS-NOT PORTABLE) from 01/06/2016 CXR2V XR chest 2V from 12/06/2017 FINDINGS: AP upright chest compared to December 2015. No significant new findings. Lungs well expanded and clear with no active disease. No focal consolidation or infiltrate. Only some scant linear scarring or atelectasis towards right base project over the anterior 5th rib. Not of concern. Calcified nodes at AP window and I believe superior left zeeshan-these reflect old granulomatous disease. Unchanged. The heart is normal in size. There is normal pulmonary vascularity. Superior mediastinum and hilar regions otherwise unremarkable but chest wall intact. AC joint arthropathy bilaterally. No pleural effusion or pneumothorax. IMPRESSION: . Stable chest with nothing definitely acute . Lungs clear the Dictated by: Frankie Perez MD 11/29/2019 09:08 Electronically signed by Frankie Perez MD in [place] 11/29/2019 09:08
--- NOTE | 2019-11-28 20:48 | XR_ITS ---
PROCEDURE: XR PELVIS 1-2V Patient Age:54Y CLINICAL INDICATION: fall With multiple injuries. Pelvic injury, pain COMPARISON: CT LUMBAR SPINE WO CON from 11/28/2019 TECHNIQUE: XR Pelvis AP View FINDINGS: Osseous pelvis intact no fracture or dislocation is evident. No significant degenerative change. No lytic or blastic change. The SI joints have an unremarkable appearance. Unremarkable soft tissues.. Mild/the moderate stool right and transverse colon IMPRESSION: Osseous pelvis intact. No fracture evident. Dictated by: Frankie Perez MD 11/29/2019 09:05 Electronically signed by Frankie Perez MD in [place] 11/29/2019 09:05
--- NOTE | 2019-11-28 20:49 | CT_ITS ---
PROCEDURE: CT CERVICAL SPINE WO CON CLINICAL INDICATION: fall Posttraumatic pain, fall with injury and pain COMPARISON: No exams were available for comparison TECHNIQUE: Axial images obtained with sagittal and coronal reformats. All CT scans at the facility use one or more dose reduction, viz: automated exposure control, ma/kV adjustment per patient size (including targeted exams where dose is matched to indication, i.e. head), or iterative reconstruction technique. Axial spiral CT scanning performed of the cervical spine beginning at the base of the skull and continuing to the upper T-spine. 3-D multiplanar reconstruction with 3-D manipulation of volumetric data set in image rendering was completed by the radiologist and/or technologist with the supervision of the radiologist on independent workstation. FINDINGS: Normal alignment. Slight reversal cervical lordosis which may be due to patient positioning or muscle spasm. No acute fracture or dislocation. Mild multilevel degenerative disc disease including 3 mm anterolisthesis C3 on C4 with mild degenerative disc disease and left-sided foraminal narrowing from facet and uncovertebral hypertrophy with some subchondral cysts of the facets, 3 mm anterolisthesis C4 on C5, degenerative disc disease C5-C6 with mild bilateral foraminal narrowing from uncovertebral hypertrophy. Lung apices are clear IMPRESSION: Degenerative change. No acute fracture Dictated by: Colby Savage MD 11/29/2019 07:17 Electronically signed by Colby Savage MD in [place] 11/29/2019 07:17
--- NOTE | 2019-11-28 20:49 | CT_ITS ---
PROCEDURE: CT LUMBAR SPINE WO CON CLINICAL HISTORY: fall Posttraumatic pain, fall with injury and pain with tingling of the lower extremities COMPARISON: CT ABDOMEN PELVIS WO CON from 08/29/2019 TECHNIQUE: Axial images obtained with sagittal and coronal reformats. All CT scans at the facility use one or more dose reduction, viz: automated exposure control, ma/kV adjustment per patient size (including targeted exams where dose is matched to indication, i.e. head), or iterative reconstruction technique. FINDINGS: There is normal alignment. There is minimal superior compression change of the L2 vertebral body without retropulsion. There is loss of height anteriorly of approximately 10 percent which was not present on a previous CT of the abdomen of 08/29/2019. There is some minimal endplate spurring at L2-L3 L4 and L5. IMPRESSION: Mild acute compression fracture of the superior endplate of L2 Dictated by: Colby Savage MD 11/29/2019 07:22 Electronically signed by Colby Savage MD in [place] 11/29/2019 07:22
--- NOTE | 2019-11-28 20:49 | ECG_ITS ---
APPROVED REPORT Exam: Resting ECG HR:59 bpm ECG Measurements Heart Rate 59 AXES FL 158 P 63 QRSd 86 QRS 70 QT 404 T 34 QTc 399 <Conclusion> Sinus bradycardia ST abnormality, possible digitalis effect Abnormal ECG Electronically signed by : Jae Luz, 12/02/2019 08:51:51
--- NOTE | 2019-11-28 20:49 | CT_ITS ---
PROCEDURE: CT HEAD/BRAIN WO CON CLINICAL INDICATION: fall Syncope with collapse, loss of consciousness, head injury with pain, headache COMPARISON: No exams were available for comparison TECHNIQUE: Axial images obtained. All CT scans at the facility use one or more dose reduction, viz: automated exposure control, ma/kV adjustment per patient size (including targeted exams where dose is matched to indication, i.e. head), or iterative reconstruction technique. FINDINGS: No midline shift, mass effect, intracranial hemorrhage, hydrocephalus, or extra-axial fluid collection is evident. The calvarium has an unremarkable appearance. There is some fluid present in the right mastoid air cells with some sclerosis of the right mastoid air cells. Air-fluid level is present in the left maxillary sinus with mucosal thickening on the right and moderate mucosal thickening of the ethmoid in right sphenoid sinus. IMPRESSION: 1. No acute intracranial findings. 2. Sinus disease Dictated by: Colby Savage MD 11/29/2019 01:40 Electronically signed by Colby Savage MD in [place] 11/29/2019 01:40
[2019-11-28 20:58] LABS: Basophils # 0.2 K/mm3 (0-0.2); Basophils % 1.7 % (0.1-2.0); Chloride 102 mmol/L (98-107); Eosinophils # 0.6 K/mm3 (0.0-0.4); Eosinophils % 5.7 % (0.1-12.0); Hematocrit 44.7 % (37.0-47.0); Hemoglobin 14.9 g/dL (12.2-16.2); Lymphocytes # 3.7 K/mm3 (0.7-4.5); Mean Corpuscular HGB Conc 33.3 g/dL (31.8-35.4); Mean Corpuscular Hemoglobin 28.9 pg (27.0-31.2); Mean Corpuscular Volume 86.6 fl (81-99); Mean Platelet Volume 7.5 fl (7.4-10.4); Monocytes # 0.5 K/mm3 (0.1-1.0); Monocytes % 4.8 % (1.7-9.3); Neutrophils # 4.9 K/mm3 (1.8-7.8); Neutrophils % 49.9 % (37.0-80.0); Platelet Count 248 K/mm3 (142-424); Potassium 3.8 mmoL/L (3.5-5.1); Red Blood Count 5.16 M/mm3 (4.20-5.40); Red Cell Distribution Width 13.7 % (11.5-17.5); Sodium 137 mmol/L (136-145); White Blood Count 9.7 K/mm3 (4.8-10.8)
[2019-11-28 21:01] LABS: Alanine Aminotransferase 30 U/L (12-78); Albumin Level 4.3 g/dl (3.5-5.0); Albumin/Globulin Ratio 1.3 (1.1-1.8); Alkaline Phosphatase 104 U/L (38-126); Anion Gap 9.8 mEq/L (5-15); Aspartate Amino Transferase 27 U/L (14-36); Bilirubin,Total 0.4 mg/dl (0.2-1.3); Blood Urea Nitrogen 18 mg/dl (7-17); Calcium 9.3 mg/dl (8.4-10.2); Carbon Dioxide 29 mmol/L (22.0-30.0); Creatinine Clearance Estimated 74 mL/min (50-200); Estimated Glomerular Filt Rate 65 ml/min (>60); GFR (African American) 79 ML/MIN (>60); Globulin 3.2 g/dL (1.3-3.2); Glucose 135 mg/dl (74-100); Total Protein,Serum 7.5 g/dl (6.3-8.2)
[2019-11-28 21:05] VITALS: BP 102/56; PULSE 76; RESP 17; O2SAT 98
[2019-11-28 21:24] LABS: Troponin I < 0.01 ng/ml (0.00-0.034)
[2019-11-28 21:38] VITALS: BP 105/52; PULSE 75; RESP 16; O2SAT 99
--- NOTE | 2019-11-28 21:39 | PC.NURSE ---
back from ct
[2019-11-28 22:05] VITALS: BP 113/86; PULSE 79; RESP 22; O2SAT 100
[2019-11-28 22:10] LABS: Lipase 85 U/L (23-300)
[2019-11-28 22:16] VITALS: BP 137/73; PULSE 75; RESP 18; O2SAT 98
--- NOTE | 2019-11-28 22:30 | HMH.EDSYNC ---
ED Disposition Clinical Impression: Vasovagal syncope, Muscle spasms of neck, Acute pain Disposition: Home, Self-Care Condition on Discharge: Good Instructions: DI for Syncope in Adults (Fainting), DI for Syncope in Children (Fainting) Prescriptions: diazePAM [Valium] 10 mg PO TID 4 Days #12 tab Prescription Printed Referrals: Jae Luz [Primary Care Provider] - - Critical Care Critical Care Time: No Attestation: On 11/28/19, the high probability of a clinically significant, sudden or life threatening deterioration of the following system(s) required my full and direct attention, intervention and personal management. The time I documented below is in addition to time spent performing reported procedures but includes the following listed in this critical care notation. Medical Decision Making - Medical Records Medical records reviewed: Yes: I reviewed the patient's medical records. - [place] Inquiry Pt receiving controlled substance: No Vital Signs: 11/28/19 20:40 11/28/19 21:05 11/28/19 21:38 Temperature 97.8 F Temperature Source Oral Pulse Rate [Right Brachial] 64 76 75 Respiratory Rate 22 17 16 Blood Pressure [Right Arm] 106/52 L 102/56 L 105/52 L Blood Pressure Mean [Right Arm] 70 71 69 Blood Pressure Source [Right Arm] Automatic Cuff Automatic Cuff Automatic Cuff Blood Pressure Position [Right Arm] Sitting Sitting Supine 02 Sat by Pulse Oximetry 98 98 99 Oxygen Delivery Method Room Air Room Air Room Air 11/28/19 22:05 Temperature Temperature Source Pulse Rate [Right Brachial] 79 Respiratory Rate 22 Blood Pressure [Right Arm] 113/86 Blood Pressure Mean [Right Arm] 95 Blood Pressure Source [Right Arm] Automatic Cuff Blood Pressure Position [Right Arm] Sitting 02 Sat by Pulse Oximetry 100 Oxygen Delivery Method Room Air - Lab Data Lab results reviewed: Yes: I reviewed the patient's lab results. Lab Results 11/28/19 20:40: Lipase 85 11/28/19 20:44: WBC 9.7, RBC 5.16, Hgb 14.9, Hct 44.7, MCV 86.6, MCH 28.9, MCHC 33.3, RDW 13.7, Plt Count 248, MPV 7.5, Neut % (Auto) 49.9, Lymph % (Auto) 38.0, [place] % (Auto) 4.8, Eos % (Auto) 5.7, Baso % (Auto) 1.7, Neut # (Auto) 4.9, Lymph # (Auto) 3.7, [place] # (Auto) 0.5, Eos # (Auto) 0.6 H, Baso # (Auto) 0.2 11/28/19 20:44: Sodium 137, Potassium 3.8, Chloride 102, Carbon Dioxide 29, Anion Gap 9.8, BUN 18 H, Creatinine 0.90, Estimated Creat Clear 74, Estimated GFR 65, Est GFR ( Amer) 79, Glucose 135 H, Calcium 9.3, Total Bilirubin 0.4, AST 27, ALT 30, Alkaline Phosphatase 104, Total Protein 7.5, Albumin 4.3, Globulin 3.2, Albumin/Globulin Ratio 1.3 11/28/19 20:44: Troponin I < 0.01 Result diagrams: 11/28/19 20:44 11/28/19 20:44 Orders (Tests/Meds): ED MEDICATIONS Generic Name Dose Route Start Last Admin Trade Name Freq PRN Reason Stop Dose Admin Sodium Chloride 1,000 mls @ 999 mls/hr 11/28/19 21:00 11/28/19 21:04 Sod Chlor 0.9% 1000ml Bag IV 11/28/19 22:00 999 mls/hr .Q1H1M EDI Administration Sodium Chloride 1,000 mls @ 999 mls/hr 11/28/19 21:45 11/28/19 21:46 Sod Chlor 0.9% 1000ml Bag IV 11/28/19 22:45 999 mls/hr .Q1H1M EDI Administration Discontinued Medications Generic Name Dose Route Start Last Admin Trade Name Freq PRN Reason Stop Dose Admin Ketorolac Tromethamine 15 mg 11/28/19 21:41 11/28/19 21:46 Toradol 30mg/Ml Vial IV 11/28/19 21:42 15 mg ONCE ONE Administration Ondansetron HCl 4 mg 11/28/19 21:41 11/28/19 21:46 Zofran 4mg/2ml Vial IV 11/28/19 21:42 4 mg ONCE ONE Administration ORDERS Category Date Time Status CT cervical spine wo con Stat Cat Scan 11/28/19 20:[address] head/brain wo con Stat Cat Scan 11/28/19 20:[address] lumbar spine wo con Stat Cat Scan 11/28/19 20:49 Taken XR chest portable Stat Exams 11/28/19 20:48 Taken XR pelvis 1-2V Stat Exams 11/28/19 20:48 Taken Troponin I Q3H Lab 11/28/19 23:53 Ordered Troponin I Q3H Lab 11/29/19 0
[2019-11-28 22:51] VITALS: BP 123/78; PULSE 76; RESP 20; TEMP 36.6; O2SAT 100
== END 2019-11-28 22:54 | disposition home or self-care (01) ==
PROVIDERS: Emergency Provider Family Medicine; PCP Internal Medicine
DX: R55 Syncope and collapse (principal); M62.838 Other muscle spasm; W18.39XA Other fall on same level, initial encounter; Y92.019 Unspecified place in single-family (private) house as the place of occurrence of the external cause; F17.210 Nicotine dependence, cigarettes, uncomplicated
CPT/HCPCS: 70450; 71045; 72125; 72131; 72170; 80053; 83690; 84484; 85025; 93005; 96365; 96366; 96375; 99283; 99284; J2405

== ENCOUNTER → 2019-12-31 08:17 | Outpatient (CLI) | payer BC, SELFPAY ==
--- NOTE | 2019-12-31 08:23 | XR_ITS ---
PROCEDURE: XR HAND RT MIN 3V CLINICAL INDICATION: right thumb pain COMPARISON: No exams were available for comparison FINDINGS: No fracture or dislocation. No lytic or blastic change. There is normal mineralization. The joint spaces are well-preserved. No significant degenerative/arthritic changes. No erosive changes evident. Other findings:None. IMPRESSION: No acute findings. Dictated by: Jayden Reynolds 12/31/2019 09:35 Electronically signed by Jayden Reynolds in [place] 12/31/2019 09:35
== END ==
PROVIDERS: PCP Internal Medicine; Visit Provider Orthopaedic Surgery
DX: M79.644 Pain in right finger(s) (principal)
CPT/HCPCS: 73130

== ENCOUNTER 2019-12-31 10:19 | Outpatient (RCR) | payer BC, SELFPAY | END 2019-12-31 11:00 | disposition home or self-care (01) | LOC: OT 10:19 | PROVIDERS: Visit Provider Orthopaedic Surgery | DX: M65.311 Trigger thumb, right thumb (principal) | CPT/HCPCS: 97763 ==

== ENCOUNTER → 2020-01-07 14:28 | Outpatient (CLI) | payer BC, SELFPAY ==
[2020-01-07 16:07] LABS: Coronavirus 19 IgG Antibody Negative (Negative); Coronavirus 19 IgM Antibody Negative (Negative)
== END ==
PROVIDERS: Visit Provider Surgery
DX: Z01.818 Encounter for other preprocedural examination (principal)
CPT/HCPCS: 36415; 86328

== ENCOUNTER 2020-01-09 10:24 | Day surgery (SDC) | payer BC, SELFPAY ==
[2020-01-08 08:56] VITALS: BMI 27.7
[2020-01-09 10:40] VITALS: BP 122/69; PULSE 53; RESP 18; TEMP 36.6; O2SAT 100
--- NOTE | 2020-01-09 12:11 | HMH.ANESCL ---
[facility] Anesthesia Checklist - Patient Identification Patient Identification: Arm Band - Structural Data Admitted From: Home Planned Operative Procedure/s: right temporal artery biopsy Consent for Planned Operative Procedure(s) Verified: Yes Verified Documents: Surgical Consent, History and Physical - NPO Status Verified Time NPO: 00:00 - Additional verifications Anesthesia Reactions: No Hx Blood Transfusions: No Blood Transfusion Reaction: No - Airway Assessment C-Spine Mobility Assessed: Yes (mp2) TMJ Mobility Assessed: Yes Dentition: Good Dentition - Neurological Assessment Level of Consciousness: Awake, Alert - Anesthesia Plan Anesthesia Risk discussed: Yes Anesthesia Plan: Verified ASA Class: II Anesthesia Type: MAC [facility] History I have reviewed the patient's past medical history: Yes Medical History: Reports:: Arrhythmia Denies:: Cancer, Diabetes Mellitus Type 1, Diabetes Mellitus Type 2, Internal Pacemaker, MRSA, Seizures *Have you ever received a pneumonia vaccine?: No *Have you received a flu vaccine this season?: No Other Medical History: Reports: Arthritis. Denies: Blood Transfusion Reaction Anesthesia experience/problems:: nac Laterality Cases: Left: Arthroscopy Shoulder, Bilateral: Tonsillectomy Other Surgeries: Yes: Cholecystectomy, , Tubal Ligation, Other. No: Pacemaker Amputation: No Fractures: No - *Social History Smoking Status: Current every day smoker Tobacco Type: cigarettes # Packs/Day (cigarettes): 1 Alcohol Intake: never Substance Use Type: denies use *Occupational Status:: employed Housing: house Household Members: significant other, family *Travel in the last 8 weeks: None Family Hx:: Cancer, Coronary Artery Disease, Other
[2020-01-09 12:34] VITALS: TEMP 43
[2020-01-09 13:30] VITALS: BP 152/61; PULSE 75; RESP 18; TEMP 36.4; O2SAT 98
--- NOTE | 2020-01-09 13:30 | HMH.OPNOTE ---
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 Post-op Diagnosis:: Same Procedure performed:: Right temporal artery biopsy Surgeon:: Yakov Garcia MD CARDIOLOGY CLINICAL NURSE SPECIALIST:: Maurice Arrington Anesthesia: MAC, local Estimated blood loss (mL): 10 Operative findings:: Strong temporal artery pulsation noted preoperatively Apparent arterial tissue at site of strong pulsation with significant spasm and no sign of definitive flow upon dissection Resection free tissue revealed no definitive lumen (possible small branch of neural bundle) Extended proximal resection with likely arterial and venous tissue resected Operative note:: After informed consent was obtained the patient was taken to the operating room and placed in the supine position. Monitored anesthesia care ensued. Her right temporal region was prepped and draped in a sterile fashion. Palpation revealed a fairly strong temporal artery pulsation. After infiltration local anesthetic an incision was made overlying the area of strongest pulsation. Follow-up was felt to most likely represent the underlying artery was carefully freed from surrounding tissue. No obvious pulsation was noted. This was felt to be secondary to possible spasm but concerns of this being possible nerve branch specialist to the need for further/deeper dissection. Once the dissection through the deeper tissue (musculature/fascia) revealed no sign of arterial tissue the decision was made to reexamine the freed bundle that was initially evaluated. A small pulsation was visible and the decision was made to resect this. Control proximally and distally with Vicryl suture was completed. The intervening section was sharply transected. Careful evaluation revealed no definitive lumen and the decision was made to proceed with more proximal resection as a strong pulse was felt at this site. The skin incision was extended proximally and a vascular bundle was carefully elevated. The artery and likely concomitant vein were carefully elevated and controlled proximally and distally with Vicryl suture ligation. The entire bundle was resected and passed off for pathologic evaluation. Electrocautery was utilized to achieve complete hemostasis. Underlying fascial margin/musculature was reapproximated with interrupted Vicryl and skin was then reapproximated with interrupted 4-0 Monocryl. Dressings were applied and the patient was transferred to recovery in stable condition. Condition: stable Disposition: PACU Specimens:: Right temporal artery versus focal nerve branch Right temporal artery with concomitant venous tissue Complications:: No immediate
[2020-01-09 13:45] VITALS: BP 122/76; PULSE 52; RESP 18; TEMP 36.4; O2SAT 96
[2020-01-09 14:00] VITALS: RESP 20
[2020-01-09 14:07] VITALS: BP 122/73; PULSE 65; RESP 18; TEMP 36.4; O2SAT 100
== END 2020-01-09 14:09 | disposition home or self-care (01) ==
LOC: OR 10:24
PROVIDERS: PCP Internal Medicine; Visit Provider Surgery
PROC: (CPT 37609; principal; 2020-01-09 13:15)
DX: M31.6 Other giant cell arteritis (principal); I49.9 Cardiac arrhythmia, unspecified; M19.90 Unspecified osteoarthritis, unspecified site; Z88.1 Allergy status to other antibiotic agents; Z79.899 Other long term (current) drug therapy; Z87.39 Personal history of other diseases of the musculoskeletal system and connective tissue; Z90.89 Acquired absence of other organs; Z72.0 Tobacco use; Z82.49 Family history of ischemic heart disease and other diseases of the circulatory system; Z84.89 Family history of other specified conditions; Z80.9 Family history of malignant neoplasm, unspecified
CPT/HCPCS: 37609; 96374

== ENCOUNTER → 2020-02-19 07:58 | Outpatient (CLI) | payer BC, SELFPAY ==
--- NOTE | 2020-02-19 07:58 | MR_ITS ---
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 STIFF NECK. DIZZINESS AND BLURRED VISION. VISION WORSE OUT OF RT EYE. PRIOR CXT 11-28-19 COMPARISON: CT CT HEAD/BRAIN WO CON from 11/28/2019 TECHNIQUE: Routine multiplanar multi echo sequences are performed without gadolinium enhancement. FINDINGS: No midline shift, mass effect, intracranial hemorrhage, or hydrocephalus. The cerebellopontine angles, cerebellum, and brainstem have an unremarkable appearance. No evidence of acute infarction. The pituitary, optic chiasm, corpus callosum, and craniocervical junction have an unremarkable appearance. There is opacification of the ethmoid sinuses bilaterally. Bilateral maxillary retention cysts are present. There is mild mucosal thickening of the sphenoid sinuses. IMPRESSION: 1. No acute intracranial findings 2. Sinus disease Dictated b Colby Savage MD 02/20/2020 09:47 Colby Savage MD in [place] 02/20/2020 09:47
[2020-02-19 10:42] LABS: Erythrocyte Sedimentation Rate 13 mm/hr (0-30)
== END ==
PROVIDERS: Nurse Practitioner Family; PCP Internal Medicine; Visit Provider Specialist
DX: R51 Headache (principal)
CPT/HCPCS: 36415; 70551; 85651

== ENCOUNTER → 2020-02-19 09:54 | Outpatient (CLI) | payer BC, SELFPAY | PROVIDERS: Visit Provider Nurse Practitioner Family | DX: R51 Headache (principal) | CPT/HCPCS: 36415; 85651 ==

== ENCOUNTER 2020-03-04 15:30 | Outpatient (RCR) | payer BC, SELFPAY ==
--- NOTE | 2020-02-19 09:57 | HMH.PTOPEV ---
PT Outpatient Evaluation Rehab PT Outpatient Evaluation Start: 02/19/20 08:59 Freq: Status: Active Protocol: Document 02/19/20 09:40 ALEXANDER (Rec: 02/19/20 09:56 KATERINAPERI [id number]) Electronically Signed By Nelson Eubanks, PT 02/19/20 09:40 Outpatient Therapy Subjective History Subjective History Patient is a 54 year old female presenting to outpatient PT with reports of cervical spine pain with RUE radicular symptoms starting approximately 1 year ago. 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 Pt reports hx of L anterior chest pain and right cervical pain. Pain to the R ear. Dizziness noted as well . Comorbidities include shingles to the right ear and L shoulder surgery. Chief Complaint Pain,Paresthesia Symptom Type Ache,Tingling Symptoms Relieved By Heat,Prescription Meds Symptoms Aggravated By Physical Activity,Lifting Prior Functional Limitations None Current Functional Limitations Reaching,Lifting,Housework Symptom Description Constant but Variable Level of pain today (0-10) 6 Pain scale - at its best (0-10) 3 Pain scale - at its worst (0-10) 8 Cervical Eval Palpation Cervical Muscles R Cervical Paraspinal,L Cervical Paraspinal,R Suboccipital,L Suboccipital,R CT Junction,L CT Junction,R Upper Trapezius,L Upper Trapezius Cervical/Thoracic Palpation Findings Tenderness Posture Head/C-Spine Posture Sitting Position Neutral Position Head/C-Spine Posture Standing Position Neutral Position Flexibility Deficits Upper Trapezius Muscle Length (R) Moderate Tightness,(L) Moderate Tightness Levaetor Scapulae Muscle Length (R) Moderate Tightness,(L) Moderate Tightness Pectoralis Minor Muscle Length (R) Moderate Tightness,(L) Moderate Tightness Passive Joint Mobility Cervical PIVM Dec: R OA L OA R AA L AA R C2/3 L C2/3 R C3/4 L C3/4 R C4/5 L C4/5
== END 2020-03-04 16:24 | disposition home or self-care (01) ==
LOC: PT 15:30
PROVIDERS: PCP Internal Medicine; Visit Provider Specialist
DX: R51 Headache; M54.2 Cervicalgia; G89.29 Other chronic pain; M79.2 Neuralgia and neuritis, unspecified
CPT/HCPCS: 20560; 97010; 97014; 97163; G0283

== ENCOUNTER → 2020-03-26 15:17 | Outpatient (CLI) | payer BC, SELFPAY ==
--- NOTE | 2020-03-26 15:19 | CT_ITS ---
PROCEDURE: CT SINUS WO CON CLINICAL HISTORY: deviated septum, hypertrophied turbinates, size of headaches, dizziness posterior right neck pain, goes up behind right ear and around to right eye hypertrophied turbinates attention: retention cyst size no prior COMPARISON: No exams were available for comparison TECHNIQUE: Axial images obtained with sagittal and coronal reformats. All CT scans at the facility use one or more dose reduction, viz: automated exposure control, ma/kV adjustment per patient size (including targeted exams where dose is matched to indication, i.e. head), or iterative reconstruction technique. FINDINGS: There is moderate to severe mucosal thickening of the ethmoid sinuses on both sides and in the right frontal ethmoid area. There is near complete opacification of the left maxillary sinus with only minimal aeration anteriorly. There is an air-fluid level in the right maxillary sinus superiorly. Lobular soft tissue density is in the inferior aspect and posterior aspect of the right maxillary sinus measuring 2.3 by 1.4 cm. There is near complete opacification of the left maxillary sinus. Cannot determine if this is mucus or a retention cyst or a combination there of. This total area measures 3.2 by 2.7 cm. There is mild mucosal thickening of the sphenoid sinus on the left with some frothy secretions on the right. There is some sclerosis of the right mastoid sinus laterally and minimal opacification posteriorly suggesting chronic inflammatory changes. The left mastoid sinus is well aerated. The middle ears are aerated. There is mild rightward nasal septal deviation with a small septal spur projecting toward the right. The TMJs are unremarkable as are the orbits IMPRESSION: 1. Paranasal sinus disease as described above with mucosal thickening and retention cyst. Measurements are given above. There is near complete opacification of the left maxillary sinus. Cannot determine if this is related all to a retention cyst or to a combination of mucosal thickening and retention cyst. 2. Rightward nasal septal deviation with rightward projecting septal spur 3. Mild sclerosis with and minimal opacification of the right mastoid sinus suggesting chronic inflammatory changes Dictated by: Colby Savage MD 03/27/2020 07:49 Colby Savage MD in [place] 03/27/2020 07:49
== END ==
PROVIDERS: PCP Internal Medicine; Visit Provider Otolaryngology
DX: J32.2 Chronic ethmoidal sinusitis (principal); J34.2 Deviated nasal septum; J34.3 Hypertrophy of nasal turbinates
CPT/HCPCS: 70486

== ENCOUNTER → 2020-08-06 10:42 | Outpatient (CLI) | payer BC, SELFPAY ==
--- NOTE | 2020-08-06 10:47 | XR_ITS ---
PROCEDURE: XR CHEST 2V CLINICAL HISTORY: RT THORACIC CHEST PAIN COMPARISON: CR CXR CHEST(2 VIEWS-NOT PORTABLE) from 01/06/2016 CR CXR2V XR chest 2V from 12/06/2017 CR XR CHEST PORTABLE from 11/28/2019 FINDINGS: The cardiomediastinal silhouette and pulmonary vascularity are within normal limits. The lungs are clear without infiltrates, suspicious nodules, or pleural effusions. Calcified nodes are present in the left hilum. There are degenerative changes in the thoracic spine. IMPRESSION: No acute findings. Dictated by: Colby Savage MD 08/06/2020 11:17 Colby Savage MD in [place] 08/06/2020 11:17
== END ==
PROVIDERS: PCP Internal Medicine; Visit Provider Internal Medicine
DX: R07.89 Other chest pain (principal)
CPT/HCPCS: 71046

== ENCOUNTER 2020-09-04 13:14 | Emergency (ER) | payer BC, SELFPAY ==
[2020-09-04 13:15] VITALS: BP 125/56; PULSE 75; RESP 20; TEMP 36.8; O2SAT 99; BMI 28.0
--- NOTE | 2020-09-04 13:37 | HMH.EDUTC ---
[facility] Disposition Clinical Impression: Abscess Disposition: Home, Self-Care Condition on Discharge: Good Instructions: Boil Additional Instructions: follow up with pcp if area worsen or no improvement return or be seen in ed cool wash cloth warm bath antibiotics as ordered Prescriptions: Sulfamethoxazole/Trimethoprim [Bactrim DS tablet] 1 each PO BID 7 Days #14 tab Transmission Status: Pending to [id number] Referrals: Jae Luz [Primary Care Provider] - Time of Disposition: 13:44 Medical Decision Making - [place] Inquiry Pt receiving controlled substance: No Vital Signs: 09/04/20 13:15 Temperature 98.3 F Temperature Source Oral Pulse Rate [Right Brachial] 75 Respiratory Rate 20 Blood Pressure [Right Arm] 125/56 L Blood Pressure Mean [Right Arm] 79 Blood Pressure Source [Right Arm] Automatic Cuff Blood Pressure Position [Right Arm] Sitting 02 Sat by Pulse Oximetry 99 Oxygen Delivery Method Room Air [facility] HPI - General Chief complaint: Urgent Treatment Center Stated complaint: knot near female area Time Seen by Provider: 09/04/20 13:38 Mode of Arrival: Ambulatory Source of Information: Patient Limitations: No Limitations Description of Symptoms (Recalled from Triage Doc. by RN): PATIENT C/O LARGE, PAINFUL LUMP IN LABIA AREA SINCE YESTERDAY. SHE STATES IT HAS DOUBLED IN SIZE SINCE SHE NOTICED IT HEENT Symptoms (Recalled from RN notes): No Resp Symptoms (Recalled from RN notes): No Skin Symptoms (Recalled from RN notes): No MS Symptoms (Recalled from RN notes): No Functional Status (Recalled from RN notes): WNL - History of Present Illness Provider Complaint: 54 yr old female presents for red painful abccess on labia. pt states it started yesterday but this am it doubled in size. - Related Data Previous Rx's Medication Instructions Recorded fexofenadine 180 mg tablet 180 mg PO DAILY #30 tab 04/15/20 pregabalin 50 mg capsule See Rx Instructions PO QHS #90 cap 05/06/20 sumatriptan succinate 100 mg tablet See Rx Instructions PO .COMPLEX 05/06/20 #10 tab Sulfamethoxazole/Trimethoprim 1 each PO BID 7 Days #14 tab 09/04/20 [Bactrim DS tablet] Allergies Allergy/AdvReac Type Severity Reaction Status Date / Time erythromycin base Allergy Unknown Verified 05/06/20 08:09 [ERYTHROMYCIN BASE] - Worker's Comp Is this a Worker's Comp case?: No [facility] History - Hepatitis A Screen Drug use history?: No High risk sexual behaviors?: No History of sexually transmitted infection?: No Currently employed?: No Childcare worker?: No Do you have indoor plumbing?: Yes Do you have electricity?: Yes Attestation statement:: This patient has been screened for Hepatitis A risk factors. I have reviewed the patient's past medical history: Yes Medical History: Reports:: Anxiety, Arrhythmia, Asthma, Depression, Migraine Denies:: Cancer, Diabetes Mellitus Type 1, Diabetes Mellitus Type 2, Internal Pacemaker, MRSA, Seizures Other Medical History: Reports: Arthritis. Denies: Blood Transfusion Reaction Laterality Cases: Left: Arthroscopy Shoulder, Bilateral: Tonsillectomy Other Surgeries: Yes: Cholecystectomy, , Dilation and Curettage, Tubal Ligation, Other (lt heel surgery). No: Pacemaker Amputation: No Fractures: No Comment: Temporal biopsy - Social History Smoking Status: Current every day smoker Tobacco Type: cigarettes # Packs/Day (cigarettes): 1 Alcohol Intake: never Alcohol Intake Frequency:: other Substance Use Type: denies use Occupational Status: other Housing: house Household Members: significant other, family - Psychiatric History Pschychiatric History:: Reports:: Anxiety, Depression Family Hx:: Cancer, Coronary Artery Disease, Other ROS Obtained: Yes Systems reviewed as appropriate & no additional complaints - Constitutional Constitutional: Reports system reviewed and no additional complaints, except as docu, Denies fever(s) - Eyes Eyes: Reports syste
[2020-09-04 13:48] VITALS: BP 125/56; PULSE 75; RESP 20; TEMP 36.8; O2SAT 99
== END 2020-09-04 13:50 | disposition home or self-care (01) ==
PROVIDERS: Emergency Provider Nurse Practitioner Family; PCP Internal Medicine
DX: N76.4 Abscess of vulva (principal); F41.8 Other specified anxiety disorders; G43.709 Chronic migraine without aura, not intractable, without status migrainosus; Z88.1 Allergy status to other antibiotic agents; F17.210 Nicotine dependence, cigarettes, uncomplicated; Z79.899 Other long term (current) drug therapy
CPT/HCPCS: 99202; G0463

== ENCOUNTER 2020-09-06 10:17 | Emergency (ER) | payer BC, SELFPAY ==
[2020-09-06 10:20] VITALS: BP 105/86; PULSE 82; RESP 19; TEMP 36.9; O2SAT 100; BMI 27.2
--- NOTE | 2020-09-06 10:40 | HMH.EDUTC ---
[facility] Disposition Clinical Impression: Abscess Disposition: Home, Self-Care Condition on Discharge: Good Instructions: DI for Vulvar Abscess Additional Instructions: Go straight to Dr Fuller office OBGYN for further treatment and evaluation of area Return if needed Straight to ER If any life threatening symptoms Referrals: Jae Luz [Primary Care Provider] - Nina Oliver MD [Staff Physician] - (Go straight to Dr Fuller office OBGYN here in the hospital) Time of Disposition: 10:49 Medical Decision Making - [place] Inquiry Pt receiving controlled substance: No [place] was queried for this patient: No Vital Signs: 09/06/20 10:20 Temperature 98.4 F Temperature Source Oral Pulse Rate [Right Brachial] 82 Respiratory Rate 19 Blood Pressure [Right Arm] 105/86 L Blood Pressure Mean [Right Arm] 92 Blood Pressure Source [Right Arm] Automatic Cuff Blood Pressure Position [Right Arm] Sitting 02 Sat by Pulse Oximetry 100 Oxygen Delivery Method Room Air - Physician Consults Physician Consulted: Dr Oliver Time: 10:45 Reason -: Obstetrical Eval/Care Comment/Response: Spoke with staff at Dr Fuller office and informed them of finding upon exam and they spoke with Dr Oliver and she advised have her come straight to her office for further evaluation and treatment [facility] HPI - General Stated complaint: cyst female area getting worse Time Seen by Provider: 09/06/20 10:40 Mode of Arrival: Ambulatory Source of Information: Patient Limitations: No Limitations Description of Symptoms (Recalled from Triage Doc. by RN): PATIENT C/O KNOT TO LABIA AREA. SHE WAS SEEN IN [facility] ON SUNDAY AND STARTED ON AN ANTIBIOTIC, BUT STATES IT IS GETTING WORSE HEENT Symptoms (Recalled from RN notes): No Resp Symptoms (Recalled from RN notes): No Skin Symptoms (Recalled from RN notes): No MS Symptoms (Recalled from RN notes): No Functional Status (Recalled from RN notes): WNL - History of Present Illness Provider Complaint: Patient states that she has had a knot in her labia area that started on Sunday and was seen and place on antibiotic and has been using the cool compresses States that it has continued to get worse and now she cannot close her legs and feels like her whole vagina area is swollen - Related Data Previous Rx's Medication Instructions Recorded fexofenadine 180 mg tablet 180 mg PO DAILY #30 tab 04/15/20 pregabalin 50 mg capsule See Rx Instructions PO QHS #90 cap 05/06/20 sumatriptan succinate 100 mg tablet See Rx Instructions PO .COMPLEX 05/06/20 #10 tab Sulfamethoxazole/Trimethoprim 1 each PO BID 7 Days #14 tab 09/04/20 [Bactrim DS tablet] Allergies Allergy/AdvReac Type Severity Reaction Status Date / Time erythromycin base Allergy Unknown Verified 05/06/20 08:09 [ERYTHROMYCIN BASE] - Worker's Comp Is this a Worker's Comp case?: No [facility] History - Hepatitis A Screen Drug use history?: No High risk sexual behaviors?: No History of sexually transmitted infection?: No Currently employed?: No Childcare worker?: No Do you have indoor plumbing?: Yes Do you have electricity?: Yes Attestation statement:: This patient has been screened for Hepatitis A risk factors. I have reviewed the patient's past medical history: Yes Medical History: Reports:: Anxiety, Arrhythmia, Asthma, Depression, Migraine Denies:: Cancer, Diabetes Mellitus Type 1, Diabetes Mellitus Type 2, Internal Pacemaker, MRSA, Seizures Other Medical History: Reports: Arthritis. Denies: Blood Transfusion Reaction Laterality Cases: Left: Arthroscopy Shoulder, Bilateral: Tonsillectomy Other Surgeries: Yes: Cholecystectomy, , Dilation and Curettage, Tubal Ligation, Other (lt heel surgery). No: Pacemaker Amputation: No Fractures: No Comment: Temporal biopsy - Social History Smoking Status: Current every day smoker Tobacco Type: cigarettes # Packs/Day (cigarettes): 1 Alcohol Intake: never Alcohol Intake Frequency:: other Substance
[2020-09-06 10:50] VITALS: BP 105/86; PULSE 82; RESP 19; TEMP 36.9; O2SAT 100
== END 2020-09-06 10:55 | disposition home or self-care (01) ==
PROVIDERS: Emergency Provider Nurse Practitioner; PCP Internal Medicine
DX: N76.4 Abscess of vulva (principal); F41.8 Other specified anxiety disorders; J45.909 Unspecified asthma, uncomplicated; G43.709 Chronic migraine without aura, not intractable, without status migrainosus; F17.210 Nicotine dependence, cigarettes, uncomplicated; Z79.899 Other long term (current) drug therapy
CPT/HCPCS: 99202; G0463

== ENCOUNTER → 2020-09-06 13:27 | Outpatient (CLI) | payer BC, SELFPAY | PROVIDERS: Visit Provider Obstetrics & Gynecology | DX: N76.4 Abscess of vulva (principal); L02.91 Cutaneous abscess, unspecified | CPT/HCPCS: 87070; 87077; 87186; 87205 ==

== ENCOUNTER → 2020-11-05 08:22 | Outpatient (CLI) | payer BC, SELFPAY ==
--- NOTE | 2020-11-05 08:22 | MM_ITS ---
PROCEDURE INFORMATION: Exam: MG Screening 3D Mammography Exam date and time: 11/05/2020 8:22 AM Age: 54 years old Clinical indication: Encounter for screening mammogram for malignant neoplasm of breast TECHNIQUE: Imaging protocol: Screening tomosynthesis and 2D mammography including computer-aided detection (CAD) when performed. COMPARISON: MG MM DIG SCREENING MAMM BI W/CAD 09/04/2019 8:11 AM FINDINGS: MAMMOGRAPHY: Breast composition: The breast tissue is composed of scattered areas of fibroglandular density. Mass: None. Architectural distortion: None. Calcifications: No suspicious calcifications. Asymmetric density: None. Skin thickening: None. Axillary adenopathy: None. Other findings: In IMPRESSION: No mammographic evidence of malignancy. Annual screening is recommended unless otherwise clinically indicated. ASSESSMENT: BI-RADS Category 1: Negative
== END ==
PROVIDERS: PCP Internal Medicine; Visit Provider Obstetrics & Gynecology
DX: Z12.31 Encounter for screening mammogram for malignant neoplasm of breast (principal)
CPT/HCPCS: 77063; 77067

== ENCOUNTER → 2021-02-21 15:45 | Outpatient (CLI) | payer BC, SELFPAY ==
--- NOTE | 2021-02-21 15:54 | XR_ITS ---
PROCEDURE: XR HAND LT MIN 3V CLINICAL INDICATION: left hand pain COMPARISON: CR XR HAND RT MIN 3V from 12/31/2019 FINDINGS: No fracture or dislocation. No lytic or blastic change. There is normal mineralization. The joint spaces are well-preserved. No significant degenerative/arthritic changes. No erosive changes evident. Other findings:None. IMPRESSION: No acute findings. Dictated by: Colby Savage MD 02/21/2021 16:43 Colby Savage MD in [place] 02/21/2021 16:43
== END ==
PROVIDERS: PCP Internal Medicine; Visit Provider Orthopaedic Surgery
DX: M79.642 Pain in left hand (principal)
CPT/HCPCS: 73130

== ENCOUNTER → 2021-05-27 16:25 | Outpatient (CLI) | payer BC, SELFPAY ==
[2021-05-27 19:31] LABS: Chloride 103 mmol/L (98-107); Potassium 4.2 mmoL/L (3.5-5.1); Sodium 139 mmol/L (136-145)
[2021-05-27 19:34] LABS: Alanine Aminotransferase 13 U/L (12-78); Albumin Level 4.2 g/dl (3.5-5.0); Albumin/Globulin Ratio 1.6 (1.1-1.8); Alkaline Phosphatase 89 U/L (38-126); Anion Gap 13.2 mEq/L (5-15); Aspartate Amino Transferase 20 U/L (14-36); Bilirubin,Total 0.2 mg/dl (0.2-1.3); Blood Urea Nitrogen 15 mg/dl (7-17); Carbon Dioxide 27 mmol/L (22.0-30.0); Estimated Glomerular Filt Rate 52 ml/min (>60); GFR (African American) 63 ML/MIN (>60); Globulin 2.6 g/dL (1.3-3.2); Total Protein,Serum 6.8 g/dl (6.3-8.2)
[2021-05-27 19:35] LABS: Glucose 76 mg/dl (74-100)
== END ==
PROVIDERS: Visit Provider Internal Medicine
DX: R79.9 Abnormal finding of blood chemistry, unspecified (principal)
CPT/HCPCS: 36415; 80053

== ENCOUNTER → 2021-06-17 06:25 | Outpatient (CLI) | payer BC, SELFPAY ==
--- NOTE | 2021-06-17 06:29 | CT_ITS ---
PROCEDURE: CT ABDOMEN PELVIS WO CON CLINICAL INDICATION: LLQ PAIN COMPARISON: CT CT ABDOMEN PELVIS WO CON from 08/29/[address] LUMBAR SPINE WO CON from 11/28/2019 TECHNIQUE: Axial images obtained with sagittal and coronal reformats. All CT scans at the facility use one or more dose reduction, viz: automated exposure control, ma/kV adjustment per patient size (including targeted exams where dose is matched to indication, i.e. head), or iterative reconstruction technique. FINDINGS: LOWER THORAX: Mild atelectatic changes are present within the lingula inferiorly. ABDOMEN & PELVIS: Prior cholecystectomy. No focal liver lesion. The spleen, adrenal glands, pancreas, and kidneys have an unremarkable appearance. No renal or ureteral calculi. No hydronephrosis. There is a mild amount of retained colonic feces. No intestinal obstruction or free air. No evidence of appendicitis or diverticulitis. No pelvic mass or abnormal fluid collection. There is minimal loss of height anteriorly of the L2 vertebral body similar to 11/28/2019. Mild sclerosis of the inferior aspect of the SI joints. IMPRESSION: No acute finding Dictated by: Colby Savage MD 06/17/2021 07:37 Colby Savage MD in [place] 06/17/2021 07:38
== END ==
PROVIDERS: PCP Internal Medicine; Visit Provider Internal Medicine
DX: R10.32 Left lower quadrant pain (principal)
CPT/HCPCS: 74176

== ENCOUNTER → 2021-10-21 09:35 | Outpatient (CLI) | payer BC, SELFPAY ==
--- NOTE | 2021-10-21 09:41 | XR_ITS ---
FINAL REPORT CLINICAL HISTORY: RIGHT KNEE PAIN FINDINGS: RIGHT KNEE Three views of the left knee were obtained. There is no acute fracture or dislocation. No joint effusion is identified. Visualized joint spaces are normally aligned. Soft tissues are unremarkable. IMPRESSION: No acute bony abnormality. Reviewed, Interpreted and Dictated by Waldo Vargas MD Transcribed by Karmen Anaya Authenticated by Waldo Vargas MD on 10/21/2021 11:58:44 AM [facility]
== END ==
PROVIDERS: PCP Internal Medicine; Visit Provider Internal Medicine
DX: M25.561 Pain in right knee (principal)
CPT/HCPCS: 73562

== ENCOUNTER 2021-10-27 22:34 | Emergency (ER) | payer BC, SELFPAY ==
[2021-10-27 22:35] VITALS: BP 99/62; PULSE 98; RESP 16; TEMP 36.9; O2SAT 98; BMI 26.9
[2021-10-27 22:53] LABS: Microscopic, Urine URINE MICROSCOPIC (MICROSCOPIC)
--- NOTE | 2021-10-27 23:02 | CT_ITS ---
PROCEDURE INFORMATION: Exam: CT Head Without Contrast Exam date and time: 10/27/2021 11:53 PM Age: 55 years old Clinical indication: Malaise or fatigue and other: Headache; Additional info: Severe headache diffuse TECHNIQUE: Imaging protocol: Computed tomography of the head without contrast. Radiation optimization: All CT scans at this facility use at least one of these dose optimization techniques: automated exposure control; mA and/or kV adjustment per patient size (includes targeted exams where dose is matched to clinical indication); or iterative reconstruction. COMPARISON: MR HEAD/BRAIN WO CON 02/19/2020 8:13 AM FINDINGS: Brain: Normal. No hemorrhage. Unremarkable white matter. No mass effect. Cerebral ventricles: No ventriculomegaly. Paranasal sinuses: Prominent mucosal thickening within bilateral ethmoidal, bilateral maxillary, and right sphenoidal sinuses, compatible with sinusitis in these locations. Remaining paranasal sinuses appear well aerated. This is felt to be chronic in nature, with similar findings seen on prior MR of the brain 02/19/2020. Mastoid air cells: Diminished aeration within the right mastoid bullae compared to the left. Adequate aeration of the left mastoid sinus. Both middle ear cavities and external auditory canals are well aerated. Findings within the right mastoid sinus are felt to be chronic/remote. Vasculature: Intracranial artery density is normal. Bones/joints: Unremarkable. No acute fracture. Soft tissues: Unremarkable. IMPRESSION: 1. No evidence of acute intracranial bleed or focal cerebral edema. 2. Chronic paranasal sinusitis similar in appearance when compared with prior MR of the brain 02/19/2020. 3. Findings within right mastoid bullae are compatible with chronic/remote right mastoid sinus disease.
[2021-10-27 23:04] LABS: Appearance,Urine CLEAR (Clear); Bilirubin,Urine Negative (Negative); Blood, Urine 2+ (Negative); Color,Urine YELLOW (Yellow); Glucose,Urine (UA) Negative (Negative); Ketones,Urine Negative (Negative); Leukocyte Esterase,Urine Negative (Negative); Nitrate,Urine Negative (Negative); PH,Urine 8.5 (5.0-8.5); Protein,Urine Negative (Negative); Specific Gravity, Urine 1.015 (1.005-1.030)
--- NOTE | 2021-10-27 23:06 | HMH.EDGENADL ---
ED Disposition Clinical Impression: UTI (urinary tract infection), Migraine Disposition: Home, Self-Care Condition on Discharge: Good Instructions: DI for Chronic Pain -- Adult Additional Instructions: The entire course of antibiotics continue to use Tylenol and ibuprofen for your pain related to headaches and rest in a dark quiet room. Prescriptions: Cefdinir [Omnicef 300mg Capsule] 300 mg PO BID 10 Days #20 cap Transmission Status: Pending to [id number] Referrals: Jae Luz [Primary Care Provider] - - Critical Care Critical Care Time: No Attestation: On 10/27/21, the high probability of a clinically significant, sudden or life threatening deterioration of the following system(s) required my full and direct attention, intervention and personal management. The time I documented below is in addition to time spent performing reported procedures but includes the following listed in this critical care notation. Medical Decision Making - Medical Records Medical records reviewed: Yes: I reviewed the patient's medical records. - [place] Inquiry Pt receiving controlled substance: No Vital Signs: 10/27/21 22:35 Temperature 98.4 F Temperature Source Oral Pulse Rate [Right] 98 H Respiratory Rate 16 Blood Pressure [Right Arm] 99/62 L Blood Pressure Mean [Right Arm] 74 02 Sat by Pulse Oximetry 98 - Lab Data Lab Results 10/27/21 22:41: Urine Color Yellow, Urine Appearance Clear, Urine pH 8.5, Ur Specific [place] 1.015, Urine Protein Negative, Urine Glucose (UA) Negative, Urine Ketones Negative, Urine Blood 2+, Urine Nitrate Negative, Urine Bilirubin Negative, Urine Urobilinogen 1.0, Ur Leukocyte Esterase Negative, Urine RBC 10-20, Urine WBC 3-5, Ur Squamous Epith Cells 3-5, Urine Bacteria 1+, Urine Mucus 1+ 10/27/21 22:41: Urine Opiates Screen Negative, Urine Methadone Screen Negative, Ur Barbituates Screen Negative, Ur Phencyclidine Scrn Negative, Ur Amphetamines Screen Negative, U Benzodiazepines Scrn Negative, Urine Cocaine Screen Negative, U Marijuana (THC) Screen Positive H 10/27/21 23:15: WBC 5.7, RBC 4.67, Hgb 13.3, Hct 39.5, MCV 84.6, MCH 28.4, MCHC 33.6, RDW 14.0, Plt Count 196, MPV 8.0, Neut % (Auto) 81.2 H, Lymph % (Auto) 5.6 L, [place] % (Auto) 9.0, Eos % (Auto) 3.2, Baso % (Auto) 1.0, Neut # (Auto) 4.7, Lymph # (Auto) 0.3 L, [place] # (Auto) 0.5, Eos # (Auto) 0.2, Baso # (Auto) 0.1 10/27/21 23:15: Sodium 134 L, Potassium 3.6, Chloride 105, Carbon Dioxide 24, Anion Gap 8.6, BUN 11, Creatinine 0.80, Estimated Creat Clear 99, Estimated GFR 75, Est GFR ( Amer) 90, Glucose 101 H, Calcium 8.4, Total Bilirubin 0.5, AST 22, ALT 17, Alkaline Phosphatase 82, Troponin I < 0.01, Total Protein 6.6, Albumin 3.9, Globulin 2.7, Albumin/Globulin Ratio 1.4, Lipase 49 Result diagrams: 10/27/21 23:15 10/27/21 23:15 Orders (Tests/Meds): ED MEDICATIONS Generic Name Dose Route Start Last Admin Trade Name Freq PRN Reason Stop Dose Admin Sodium Chloride 1,000 mls @ 150 mls/hr 10/27/21 23:30 10/27/21 23:23 Sod Chlor 0.45% 1000ml Bag IV 11/26/21 23:29 150 mls/hr .[id number] EDI Administration Discontinued Medications Generic Name Dose Route Start Last Admin Trade Name Freq PRN Reason Stop Dose Admin Belladonna Alkaloids 60 ml 10/27/21 23:00 10/27/21 23:23 Gi Cocktail 60ml Udc PO 10/27/21 23:01 60 ml ONCE ONE Administration Diphenhydramine HCl 25 mg 10/27/21 23:01 10/27/21 23:22 Diphenhydramine 50mg/Ml Vial IV 10/27/21 23:02 25 mg ONCE ONE Administration Sodium Chloride 1,000 mls @ 999 mls/hr 10/27/21 23:00 10/27/21 23:21 Sod Chlor 0.9% 1000ml Bag IV 10/28/21 00:00 Not Given .Q1H1M EDI Iopamidol 100 ml 10/28/21 00:19 04/22/22 00:20 Iopamidol-370 (76%);100ml Bottle IV 10/28/21 00:20 100 ml ONCE ONE Administration Ketorolac Tromethamine 15 mg 10/27/21 23:00 10/27/21 23:22 Ketorolac 30mg/Ml Vial IV 10/27/21 23:01 15 mg ONCE ONE Administra
[2021-10-27 23:16] LABS: Barbiturates Screen,Urine Negative ng/ml (<200)
[2021-10-27 23:17] LABS: Benzodiazepines Screen,Urine Negative ng/ml (<200)
[2021-10-27 23:18] LABS: Amphetamine/Metha Screen,Urine Negative ng/ml (<1000); Cannabinoid Screen,Urine Positive ng/ml (<50)
[2021-10-27 23:19] LABS: Cocaine Screen,Urine Negative ng/ml (<300); Methadone Screen,Urine Negative ng/ml (<300)
[2021-10-27 23:20] LABS: Opiate Screen,Urine Negative ng/ml (<300)
[2021-10-27 23:21] LABS: Phencyclidine Screen,Urine Negative ng/ml (<25)
[2021-10-27 23:26] LABS: Basophils # 0.1 K/mm3 (0-0.2); Eosinophils # 0.2 K/mm3 (0.0-0.4); Eosinophils % 3.2 % (0.1-12.0); Hematocrit 39.5 % (37.0-47.0); Hemoglobin 13.3 g/dL (12.2-16.2); Lymphocytes # 0.3 K/mm3 (0.7-4.5); Lymphocytes % 5.6 % (10-50); Mean Corpuscular HGB Conc 33.6 g/dL (31.8-35.4); Mean Corpuscular Hemoglobin 28.4 pg (27.0-31.2); Mean Corpuscular Volume 84.6 fl (81-99); Monocytes # 0.5 K/mm3 (0.1-1.0); Neutrophils # 4.7 K/mm3 (1.8-7.8); Neutrophils % 81.2 % (37.0-80.0); Platelet Count 196 K/mm3 (142-424); Red Blood Count 4.67 M/mm3 (4.20-5.40); White Blood Count 5.7 K/mm3 (4.8-10.8)
[2021-10-27 23:26] LABS: Bacteria,Urine 1+ /lpf; Mucus,Urine 1+ /lpf
[2021-10-27 23:34] LABS: Chloride 105 mmol/L (98-107); Sodium 134 mmol/L (136-145)
[2021-10-27 23:35] LABS: Potassium 3.6 mmoL/L (3.5-5.1)
[2021-10-27 23:37] LABS: Alanine Aminotransferase 17 U/L (12-78); Alkaline Phosphatase 82 U/L (38-126); Anion Gap 8.6 mEq/L (5-15); Aspartate Amino Transferase 22 U/L (14-36); Bilirubin,Total 0.5 mg/dl (0.2-1.3); Blood Urea Nitrogen 11 mg/dl (7-17); Carbon Dioxide 24 mmol/L (22.0-30.0); Creatinine Clearance Estimated 99 mL/min (50-200); Estimated Glomerular Filt Rate 75 ml/min (>60); GFR (African American) 90 ML/MIN (>60); Lipase 49 U/L (23-300)
[2021-10-27 23:38] LABS: Albumin Level 3.9 g/dl (3.5-5.0); Albumin/Globulin Ratio 1.4 (1.1-1.8); Calcium 8.4 mg/dl (8.4-10.2); Globulin 2.7 g/dL (1.3-3.2); Glucose 101 mg/dl (74-100); Total Protein,Serum 6.6 g/dl (6.3-8.2)
--- NOTE | 2021-10-28 | CT_ITS ---
PROCEDURE INFORMATION: Exam: CTA Chest With Contrast Exam date and time: 10/27/2021 11:59 PM Age: 55 years old Clinical indication: Pain; Radiating; Additional info: Chest pain through to back/ dissection TECHNIQUE: Imaging protocol: Computed tomographic angiography of the chest with contrast. 3D rendering (Not supervised by radiologist): MIP and/or 3D reconstructed images were created by the technologist. Radiation optimization: All CT scans at this facility use at least one of these dose optimization techniques: automated exposure control; mA and/or kV adjustment per patient size (includes targeted exams where dose is matched to clinical indication); or iterative reconstruction. Contrast material: ISOVUE; Contrast volume: 100 ml; Contrast route: INTRAVENOUS (IV); COMPARISON: CR XR CHEST 2V 08/06/2020 10:52 AM FINDINGS: Pulmonary arteries: Normal. No pulmonary emboli. Aorta: Unremarkable. No aortic aneurysm. No aortic dissection. Lungs: Unremarkable. No consolidation. No masses. Pleural spaces: Unremarkable. No pneumothorax. No pleural effusion. Heart: Unremarkable. No cardiomegaly. No pericardial effusion. Lymph nodes: Unremarkable. No enlarged lymph nodes. Bones/joints: Unremarkable. No acute fracture. Soft tissues: Unremarkable. IMPRESSION: No acute findings.
--- NOTE | 2021-10-28 | XR_ITS ---
PROCEDURE INFORMATION: Exam: XR Chest Exam date and time: 10/28/2021 12:11 AM Age: 55 years old Clinical indication: Pain; Radiating; Additional info: Chest pain TECHNIQUE: Imaging protocol: XR of the chest. Views: 1 view. COMPARISON: CT ANGIO CHEST 10/27/2021 11:59 PM FINDINGS: Lungs: Unremarkable. No consolidation. Pleural spaces: Unremarkable. No pleural effusion. No pneumothorax. Heart/Mediastinum: Unremarkable. No cardiomegaly. Bones/joints: Unremarkable. IMPRESSION: No acute findings.
--- NOTE | 2021-10-28 | CT_ITS ---
PROCEDURE INFORMATION: Exam: CT Abdomen And Pelvis With Contrast Exam date and time: 10/27/2021 11:59 PM Age: 55 years old Clinical indication: Abdominal pain; Additional info: Upper abdominal pain TECHNIQUE: Imaging protocol: Computed tomography of the abdomen and pelvis with contrast. Radiation optimization: All CT scans at this facility use at least one of these dose optimization techniques: automated exposure control; mA and/or kV adjustment per patient size (includes targeted exams where dose is matched to clinical indication); or iterative reconstruction. Contrast material: ISOVUE; Contrast volume: 100 ml; Contrast route: IV; COMPARISON: CT ABDOMEN PELVIS WO CON 06/17/2021 6:32 AM FINDINGS: Tubes, catheters and devices: None noted. Lungs: Lung bases appear clear. Heart: No significant coronary calcifications. No cardiomegaly. No significant pericardial effusion. Liver: Normal. No mass. Gallbladder and bile ducts: Cholecystectomy. No ductal dilation. Pancreas: Normal. No ductal dilation. Spleen: Normal. No splenomegaly. Adrenal glands: Normal. No mass. Kidneys and ureters: Normal. No hydronephrosis. Stomach and bowel: Unremarkable. No obstruction. No mucosal thickening. Appendix: No evidence of appendicitis. Intraperitoneal space: Unremarkable. No free air. No significant fluid collection. Retroperitoneal space: No significant retroperitoneal inflammatory changes are noted. Arteries: Unremarkable. No abdominal aortic aneurysm. Lymph nodes: Unremarkable. No enlarged lymph nodes. Urinary bladder: Unremarkable as visualized. Reproductive: Unremarkable as visualized. Bones/joints: Unremarkable. No acute fracture. Soft tissues: Unremarkable. IMPRESSION: No acute findings.
[2021-10-28 00:03] LABS: Troponin I < 0.01 ng/ml (0.00-0.034)
--- NOTE | 2021-10-28 00:25 | ECG_ITS ---
APPROVED REPORT Exam: Resting ECG HR:82 bpm ECG Measurements Heart Rate 82 AXES MI 165 P 61 QRSd 91 QRS 62 QT 364 T 16 QTc 402 Conclusion SINUS RHYTHM NONSPECIFIC T-WAVE ABNORMALITY BORDERLINE ECG UNCONFIRMED REPORT Electronically signed by : Shashi Gregorio MD 10/29/2021 12:14:50
[2021-10-28 02:33] LABS: Troponin I < 0.01 ng/ml (0.00-0.034)
[2021-10-28 02:52] VITALS: BP 115/71; PULSE 79; RESP 16; TEMP 36.8; O2SAT 98
== END 2021-10-28 02:55 | disposition home or self-care (01) ==
PROVIDERS: Emergency Provider Student in an Organized Health Care Education/Training Program; PCP Internal Medicine
DX: N30.00 Acute cystitis without hematuria (principal); R07.9 Chest pain, unspecified; G43.909 Migraine, unspecified, not intractable, without status migrainosus; F41.8 Other specified anxiety disorders; F17.210 Nicotine dependence, cigarettes, uncomplicated
CPT/HCPCS: 70450; 71045; 71275; 74177; 80053; 80305; 81001; 83690; 84484; 85025; 93005; 96360; 96361; 96375; 99285; J2405; Q9967

== ENCOUNTER → 2022-09-26 16:24 | Outpatient (CLI) | payer BC, SELFPAY ==
--- NOTE | 2022-09-26 16:32 | XR_ITS ---
PROCEDURE INFORMATION: Exam: XR Right Calcaneus Exam date and time: 09/26/2022 4:43 PM Age: 56 years old Clinical indication: Ankle; Patient HX: Right calcaneus pain. No injury. ; Additional info: Pain and tenderness TECHNIQUE: Imaging protocol: Radiologic exam of the right calcaneus. Views: 2 or more views. COMPARISON: CR XR KNEE RT 3V 10/21/2021 9:59 AM FINDINGS: Bones/joints: No acute fracture or dislocation. Calcaneal spurs. Considerable dorsal calcaneal enthesopathy. Soft tissues: Soft tissue swelling noted posterior to the upper calcaneus. IMPRESSION: Degenerative changes and soft tissue swelling as described.
== END ==
PROVIDERS: PCP Internal Medicine; Visit Provider Internal Medicine
DX: M79.671 Pain in right foot (principal)
CPT/HCPCS: 73650

== ENCOUNTER → 2022-10-19 13:11 | Outpatient (CLI) | payer BC, SELFPAY ==
--- NOTE | 2022-10-19 13:12 | MR_ITS ---
FINAL REPORT CLINICAL HISTORY: Right foot pain. LATERAL SIDED ANKLE PAIN. NO INJURY OR TRAUMA. COMPARISON: None FINDINGS: Multiplanar MR imaging of the right foot was performed without contrast. There is mild degenerative change. The bony structures are intact without evidence of fracture. There is bone marrow edema in the superior calcaneal tuberosity with a Annika deformity, likely reactive. There are small intrasubstance tears of the distal Achilles tendon. No ligamentous injury is identified. The musculature is intact. The plantar aponeurosis is intact. No soft tissue mass or cyst is identified. Fluid in the retrocalcaneal bursa consistent with retrocalcaneal bursitis. IMPRESSION: Bone marrow edema superior calcaneal tuberosity with Annika deformity, likely reactive. Small intrasubstance tears of the distal Achilles tendon. Retrocalcaneal bursitis. Reviewed, Interpreted and Dictated by Yunier Prieto III, MD Transcribed by Latoya Negron Authenticated and . [facility]
--- NOTE | 2022-10-19 13:12 | MR_ITS ---
FINAL REPORT CLINICAL HISTORY: Right ankle pain. foot pain. LATERAL SIDED ANKLE PAIN. NO INJURY OR TRAUMA. COMPARISON: None FINDINGS: Multiplanar MR imaging of the right ankle was performed without contrast. The bony structures are intact without evidence of fracture. Bony prominence of the superior calcaneal tuberosity consistent with Annika deformity. There is bone marrow edema in this region which is likely reactive. No osteochondral lesion is identified. There is distal Achilles tendonitis, peritendinitis, and small intrasubstance tears. The posterior plantar aponeurosis is intact. No significant joint effusion is seen. The musculature is intact. There is fluid in the retrocalcaneal bursa consistent with retrocalcaneal bursitis. IMPRESSION: Findings consistent with Annika deformity with bone marrow edema. Distal Achilles tendonitis, peritendinitis, and small intrasubstance tears. Retrocalcaneal bursitis. Reviewed, Interpreted and Dictated by Yunier Prieto III, MD Transcribed by Latoya Negron Authenticated and . [facility]
== END ==
PROVIDERS: PCP Internal Medicine; Visit Provider Nurse Practitioner Family
DX: M25.571 Pain in right ankle and joints of right foot (principal); M25.471 Effusion, right ankle; M76.61 Achilles tendinitis, right leg
CPT/HCPCS: 73718; 73721

== ENCOUNTER → 2022-10-30 12:18 | Outpatient (CLI) | payer BC, SELFPAY ==
--- NOTE | 2022-10-30 12:35 | ECG_ITS ---
APPROVED REPORT Exam: Resting ECG HR:51 bpm ECG Measurements Heart Rate 51 AXES KS 140 P 64 QRSd 90 QRS 73 QT 435 T 36 QTc 413 Conclusion SINUS BRADYCARDIA NDST CHANGES NO ACUTE CHANGES COMPARED TO OLD EKG 2015 Electronically signed by : Jae Luz MD 11/15/2022 13:35:30
--- NOTE | 2022-10-30 12:53 | XR_ITS ---
FINAL REPORT CLINICAL HISTORY: pre-op testing COMPARISON: 10/28/2021 FINDINGS: 2 views of the chest were obtained . The heart is normal in size. The mediastinum is within normal limits. The lungs are clear. There is no pneumothorax. Osseous structures are unremarkable. IMPRESSION: No acute cardiopulmonary process. Reviewed, Interpreted and Dictated by Yunier Prieto III, MD Transcribed by Moon Strickland Authenticated and . [facility]
[2022-10-30 13:06] LABS: Basophils # 0.1 K/mm3 (0-0.2); Basophils % 0.8 % (0.1-2.0); Eosinophils # 0.3 K/mm3 (0.0-0.4); Eosinophils % 4.1 % (0.1-12.0); Hematocrit 46.2 % (37.0-47.0); Hemoglobin 15.2 g/dL (12.2-16.2); Lymphocytes # 2.6 K/mm3 (0.7-4.5); Lymphocytes % 35.5 % (10-50); Mean Corpuscular HGB Conc 32.9 g/dL (31.8-35.4); Mean Corpuscular Hemoglobin 28.1 pg (27.0-31.2); Mean Corpuscular Volume 85.6 fl (81-99); Mean Platelet Volume 8.5 fl (7.4-10.4); Monocytes # 0.3 K/mm3 (0.1-1.0); Monocytes % 4.5 % (1.7-9.3); Neutrophils % 55.1 % (37.0-80.0); Platelet Count 224 K/mm3 (142-424); Red Cell Distribution Width 13.8 % (11.5-17.5); White Blood Count 7.2 K/mm3 (4.8-10.8)
[2022-10-30 13:42] LABS: Alanine Aminotransferase 18 U/L (12-78); Albumin Level 4.3 g/dl (3.5-5.0); Albumin/Globulin Ratio 1.6 (1.1-1.8); Alkaline Phosphatase 92 U/L (38-126); Anion Gap 11.1 mEq/L (5-15); Aspartate Amino Transferase 21 U/L (14-36); Bilirubin,Total 0.4 mg/dl (0.2-1.3); Blood Urea Nitrogen 13 mg/dl (7-17); Carbon Dioxide 29 mmol/L (22.0-30.0); Chloride 104 mmol/L (98-107); Estimated Glomerular Filt Rate 87 ml/min (>60); GFR (African American) 105 ML/MIN (>60); Globulin 2.7 g/dL (1.3-3.2); Glucose 88 mg/dl (74-100); Potassium 4.1 mmoL/L (3.5-5.1); Sodium 140 mmol/L (136-145)
[2022-11-05 19:57] LABS: 1,25 Dihydroxy Vitamin D 39 pg/mL (.); 1,25-Dihydroxy, Vitamin D-2 <10 pg/mL (.); 1,25-Dihydroxy, Vitamin D-3 37 pg/mL (.)
[2022-11-25 18:14] LABS: Cotinine 222.6
== END ==
LOC: LAB 12:19
PROVIDERS: PCP Internal Medicine; Visit Provider Podiatrist
DX: Z01.818 Encounter for other preprocedural examination (principal)
CPT/HCPCS: 36415; 71046; 80053; 80323; 82652; 85025; 93005

== ENCOUNTER → 2022-11-03 06:43 | Outpatient (CLI) | payer BC, SELFPAY | LOC: RAD 06:44 | PROVIDERS: PCP Internal Medicine; Visit Provider Physician Assistant | DX: R06.00 Dyspnea, unspecified (principal); R07.9 Chest pain, unspecified; R42 Dizziness and giddiness; R94.31 Abnormal electrocardiogram [ECG] [EKG]; Z01.810 Encounter for preprocedural cardiovascular examination | CPT/HCPCS: 78452; 93017; A9502; J2785 ==

== ENCOUNTER → 2022-11-23 10:32 | Day surgery (SDC) | payer BC, SELFPAY ==
[2022-11-20 13:52] VITALS: BMI 28.5
[2022-11-23] VITALS (10 sets, daily range): BP systolic 113–146; BP diastolic 60–87; PULSE 57–89; RESP 12–21; TEMP 36.1–43; O2SAT 93–98
--- NOTE | 2022-11-23 13:55 | EXP.ANES.CKL ---
[facility] Disclaimer: The information contained in this section may have been updated after the patient was seen, as this information can be updated by other users. Medical History Abnormal electrocardiogram [ECG] [EKG] Allergies delivery delivered Chest pain Dizziness Dyspnea Encounter for pre-operative cardiovascular clearance Palpitations Surgical History History of cholecystectomy History of foot surgery History of rotator cuff surgery History of temporal artery biopsy History of tubal ligation Hx of tonsillectomy Family History Other No significant family history Social History Smoking Status: Current every day smoker tobacco type: cigarettes packs per day: 1 second hand exposure: No alcohol intake: never substance use type: denies use current occupational status: employed and other Travel in the last 8 weeks: None household members: significant other and family housing: house current occupation: [employer] current occupational exposures/hazards: No caffeine: Yes [facility] Anesthesia Checklist Patient Identification Patient Identification: Arm Band Structural Data Admitted From: Home Planned Operative Procedure/s: Right Achilles Tendon Repair Consent for Planned Operative Procedure(s) Verified: Yes Verified Documents: Surgical Consent and History and Physical NPO Status Verified Time NPO: 00:00 Additional verifications Anesthesia Reactions: No Hx Blood Transfusions: No Blood Transfusion Reaction: No Airway Assessment C-Spine Mobility Assessed: Yes TMJ Mobility Assessed: Yes Dentition: Good Dentition Neurological Assessment Level of Consciousness: Awake and Alert Anesthesia Plan Anesthesia Risk discussed: Yes Anesthesia Plan: Verified ASA Class: II Anesthesia Type: General w/block (Right Popliteal Nerve Block. Risks/benefits explained, pt verbalized understanding)
--- NOTE | 2022-11-23 14:30 | XR_ITS ---
FINAL REPORT CLINICAL HISTORY: Post op achilles, retrocalc FINDINGS: RIGHT FOOT: Three views of the right foot were obtained. Postoperative changes are seen posteriorly. A splint is present and obscures some of the detail. IMPRESSION: Postoperative changes posteriorly. Reviewed, Interpreted and Dictated by Yunier Prieto III, MD Transcribed by Gila Cruz Authenticated and [facility]
--- NOTE | 2022-11-23 15:11 | EXP.OP.NOTE ---
Date of procedure: 11/23/22 Pre-op Diagnosis:: Right Achilles tendinitis Right Achilles tear Right Achilles bursitis Retrocalcaneal exostosis Post-op Diagnosis:: Same Procedure performed:: Right achilles repair with graft Ostectomy for Annika Application of amniotic graft Application of posterior splint Surgeon:: Lucia Gordon DPM KITCHEN CLEANER:: Maurice Arrington Anesthesia: GETA and regional (R popliteal nerve block) Estimated blood loss (mL): 20 Clinical Note:: Patient is a 56-year-old female with a history of left Annika's and Achilles surgery 16 years ago.? She was referred for right heel and Achilles pain.? X-rays show calcaneal enthesopathy.? MRI shows retrocalcaneal bursa, Annika's deformity with bone marrow edema, distal Achilles tendinitis, peritendinitis and intrasubstance tears. The patient has tried immobilization, modification of shoe gear, strapping, inserts, ice, elevation, and NSAIDs. She has also tried ankle bracing and home physical therapy. After a long discussion with the patient in regards to the conservative versus surgical treatment for the tendon tear/deformity, the patient has elected to proceed with surgery because they have failed conservative treatment and continue to have pain and worsening symptoms affecting daily activities.? The patient has been instructed on the planned procedure, all risk versus benefits of the procedure discussed.? These include but are not limited to: bleeding, infection, nerve and blood vessel damage, need for further surgery, delay in healing of soft tissue or bone, tendon re-rupture, failure of bones to heal, non-union, mal-union, failure of the implant, prolonged pain and recovery, prolonged/permanent pain and swelling, CPRS/RSD, DVT/PE and anesthetic complications. Smoking cessation discussed and recommended. No guarantees were given. All questions fully answered. The patient verbalized understanding and agreed to proceed with surgery. Written consent was obtained. Operative findings:: Insertional longitudinal tears of the Achilles tendon. Bursitis noted. Significant Annika's deformity appreciated. There is some calcific changes in the distal 3 cm of the Achilles tendon consistent with calcification and history of tear/rupture. Operative note:: On this date and time patient was deemed an appropriate surgical candidate. Anesthesia performed a pre-op regional popliteal nerve block. With informed consent signed, the patient was taken to the operating theater. The patient was positioned supine. General anesthesia was induced. Tourniquet was applied to the thigh at 250 mmHg. Patient positioned prone and the right lower extremity was prepped and draped in normal sterile fashion. IV Ancef infused. Right Achilles debridement and repair: Attention was directed to the posterior leg where a longitudinal incision was mapped out. Dissection down to the level of the peritenon which was preserved for later closure. Achilles tendon had some thickening hypertrophy and calcific debris. 15 blade and forceps used to sharply excisionally debride nonviable thick fibrotic Achilles tendon. Underlying Achilles there was bursitis noted. It was debrided. Wounds flushed with saline. Right retrocalcaneal exostectomy: Attention was then directed to the underlying calcaneus where significant spurring was appreciated. Saw was used to resect the calcaneal spur which was sent to pathology as a specimen. A power rasp was then used to smooth down bone edges so there were no bony prominences posteriorly. Wound was flushed with saline. Application of graft: Attention was directed back to the Achilles. In standard technique in accordance with manufacture guidelines an Arthrex speed bridge was inserted into the posterior heel. Bone anchors were drilled proximally x2 and suture threaded through the Achilles tendon. The Achilles was tensioned and secured with bone anchor inferiorly. Good tension noted to the Achilles. The previous debridem
--- NOTE | 2022-11-23 15:20 | P.PNANES_ITS ---
[facility] Anesthesia Record Part I Anesthesia Record I Intake, IV Amount: 1,000 Estimated blood loss (mL): 20 Urine output (mL): 0 Blood Pressure: 138/74 SaO2: 95 Pulse Rate: 89 Respiratory Rate: 21 Temperature: 98.5 F Patient is:: Drowsy and Oral/Nasal airway Stable to PACU at:: 15:20
--- NOTE | 2022-11-23 15:59 | SUR.OPER ---
1441- Called to pre-op and spoke with CHECO Cook and requested that she update the patient's family that we are closing per MD Bassam.
--- NOTE | 2022-11-24 11:18 | P.PNANES_ITS ---
[facility] Anesthesia Record Part II Anesthesia Record Part II Discharge Time: 15:50 Destination: Surgical Day Care (OP Surgery) PACU nurse assessment reviewed?: Yes Patient Condition:: Good Anesthesia Complications:: None Swallowing reflex intact?: Yes Cyanosis?: No Blood Pressure: 133/68 Pulse Rate: 71 Temperature: 97.9 F Mental Status: Alert & Oriented Pain level:: 0 Nausea and/or vomitting:: None Intake, IV Amount: 0
[2022-11-24 11:19] VITALS: BP 133/68; PULSE 71; TEMP 36.6
== END | disposition home or self-care (01) ==
PROVIDERS: PCP Internal Medicine; Visit Provider Podiatrist
PROC: (CPT 27652; principal; 2022-11-23 12:00)
DX: M92.61 Juvenile osteochondrosis of tarsus, right ankle (principal); M77.51 Other enthesopathy of right foot and ankle; M76.61 Achilles tendinitis, right leg; G89.29 Other chronic pain; M25.471 Effusion, right ankle; M25.571 Pain in right ankle and joints of right foot; M79.671 Pain in right foot; F17.210 Nicotine dependence, cigarettes, uncomplicated; Z79.899 Other long term (current) drug therapy
CPT/HCPCS: 27652; 27687; 28118; 73630; 96374; C1762; J2405

== ENCOUNTER 2022-12-23 11:38 | Emergency (ER) | payer BC, SELFPAY ==
[2022-12-23 11:40] VITALS: BP 131/72; PULSE 100; RESP 16; TEMP 36.8; O2SAT 95; BMI 29.2
--- NOTE | 2022-12-23 11:55 | XR_ITS ---
PROCEDURE INFORMATION: Exam: XR Right Foot Exam date and time: 12/23/2022 12:00 PM Age: 57 years old Clinical indication: Pain; Heel; Right; Additional info: Heel pain, post op TECHNIQUE: Imaging protocol: Radiologic exam of the right foot. Views: 3 or more views. COMPARISON: CR XR FOOT RT MIN 3V 11/23/2022 3:45 PM FINDINGS: Bones/joints: Inferior calcaneal spur. Degenerative changes most pronounced in talonavicular and 1st metatarsophalangeal joints. No erosive changes. Normal bony density. Soft tissues: Normal. Other findings: No effusion. IMPRESSION: Calcaneal spur. No acute radiographic findings identified.
--- NOTE | 2022-12-23 11:55 | HMH.EDGENADL ---
Discharge Plan Disposition Patient Disposition: Home, Self-Care Condition: Good Prescriptions Prescriptions: New sulfamethoxazole-trimethoprim [Bactrim DS] 800-160 mg tablet 1 tab PO BID 7 Days Qty: 14 0RF No Action cyclobenzaprine 5 mg tablet 5 mg PO TID PRN (Reason: muscle spasm) Qty: 30 0RF ibuprofen 800 mg tablet 800 mg PO BID Qty: 60 3RF ondansetron 4 mg tablet,disintegrating 4 mg PO Q6H Qty: 30 2RF hydrocodone-acetaminophen 7.5-325 mg tablet 1 tab PO Q4-6H PRN (Reason: post op pain) 7 Days Qty: 30 0RF diphenhydramine HCl [Benadryl Allergy] 25 mg Tablet 25 mg PO NEEDED PRN (Reason: allergies) Referrals Follow up/Referrals: Jae Luz MD [Primary Care Provider] - See instructions Shazia Irizarry DO [Emergency Provider] - See instructions Lucia Gordon DPM [Staff Physician] - See instructions Activity Restrictions/Add. Instructions Additional Instructions/Restrictions: You have been evaluated for ankle pain, skin infection. Please take antibiotics as prescribed. Follow-up with Dr. Gordon at next available appointment. Keep the wound clean and dry. Okay to take Tylenol or Motrin for pain. Return to the emergency department at once for any new or worsening symptoms, fever, wound drainage, redness, joint pain, any other concerns Clinical Impressions Clinical Impression: Encounter for postoperative wound check, Skin infection Instructions Patient Instructions: How to Care for a Surgical Wound-Stitches Discharge ED Provider: Shazia Irizarry General Adult HPI General Chief complaint: Wound/Laceration Stated complaint: post surgery r foot pain and red Time Seen by Provider: 12/23/22 11:43 Mode of Arrival: Ambulatory Source of Information: Patient Limitations: No Limitations Description of Symptoms (Recalled from ER Triage Doc. by RN): pt to the ED with redness, itching and burning in her right foot. pt had surgery to her right foot a month ago and had surutres removed two weeks ago. pt reports she has notoced a scan amount of puss coming from his incision site. pt denies any fevers at this time History of Present Illness HPI narrative: 57-year-old female presenting to the emergency department with right heel pain, wound check. She had surgery almost 1 month ago on her right heel, Achilles. Saw Dr. Gordon 2 weeks ago and had the sutures removed. This morning, she had an area of pain that is located on the heel. Described as sharp and achy. Feels like it is burning, itching. She took off the Steri-Strips and saw a small amount of pus. She is now concerned for infection. No redness at this time, but it was red earlier in the week. No fevers or chills. She is not currently on antibiotics. Denies repeat injury.. Related Data Home Medications Medication Instructions Recorded Confirmed diphenhydramine HCl 25 mg tablet 25 mg PO NEEDED PRN allergies 11/20/22 12/14/22 (Benadryl Allergy) Previous Rx's Medication Instructions Recorded hydrocodone 7.5 mg-acetaminophen 1 tab PO Q4-6H PRN post op pain 7 11/22/22 325 mg tablet days #30 tabs ibuprofen 800 mg tablet 800 mg PO BID pain, mild #60 tabs 11/22/22 ondansetron 4 mg disintegrating 4 mg PO Q6H nausea and vomiting 11/22/22 tablet #30 tabs cyclobenzaprine 5 mg tablet 5 mg PO TID PRN muscle spasm #30 12/07/22 tabs sulfamethoxazole 800 1 tab PO BID 7 days #14 tabs 12/23/22 mg-trimethoprim 160 mg tablet (Bactrim DS) Allergies Allergy/AdvReac Type Severity Reaction Status Date / Time erythromycin base Allergy Unknown Verified 12/14/22 09:08 [ERYTHROMYCIN BASE] [facility] Disclaimer: The information contained in this section may have been updated after the patient was seen, as this information can be updated by other users. Medical History Abnormal electrocardiogram [ECG] [EKG] Allergies delivery delivered Chest pain Dizziness Dy
[2022-12-23 12:30] VITALS: BP 98/75; PULSE 63; RESP 18; O2SAT 98
[2022-12-23 13:01] VITALS: BP 123/74; PULSE 60; RESP 20; O2SAT 98
[2022-12-23 13:30] VITALS: BP 135/86; PULSE 77; RESP 18; O2SAT 99
[2022-12-23 13:36] VITALS: BP 135/86; PULSE 74; RESP 19; TEMP 36.9; O2SAT 98
== END 2022-12-23 13:36 | disposition home or self-care (01) ==
PROVIDERS: Emergency Provider Emergency Medicine; PCP Internal Medicine
DX: T81.41XA Infection following a procedure, superficial incisional surgical site, initial encounter (principal); M79.671 Pain in right foot; Y83.9 Surgical procedure, unspecified as the cause of abnormal reaction of the patient, or of later complication, without mention of misadventure at the time of the procedure
CPT/HCPCS: 73630; 99283; 99284

== ENCOUNTER 2023-03-08 09:30 | Outpatient (RCR) | payer BC, SELFPAY ==
--- NOTE | 2023-02-06 10:04 | HMH.PTOPEV ---
PT Outpatient Evaluation Rehab PT Outpatient Evaluation Start: 02/06/23 09:15 Freq: Status: Active Protocol: Document 02/06/23 09:38 RADHA (Rec: 02/06/23 10:04 RADHA [id number]) E-signed By Adrián Hayward, PT Outpatient Therapy Subjective History Subjective History Pt presents s/p right achilles tendon repair sx on 11/22/22. Pt reports initial right heel discomfort/injury occurred on 09/29/22. Pt reports 'burning sensation' in right heel/foot since sx., and reports 'skin infection which I'm hoping gets a small skin graft this .' Pt reports localized right heel pain with wt. bearing in cam walker, otherwise normal post-op stiffness and swelling. ( Return to [id number] shifts in standing) Chief Complaint Pain,Stiff,Paresthesia, Weakness Symptom Type Ache,Dull,Burning Symptoms Relieved By Rest/Positioning Symptoms Aggravated By Physical Activity,Walking Prior Functional Limitations Housework,Standing,Walking Current Functional Limitations Housework,Standing,Walking Symptom Description Constant but Variable Level of pain today (0-10) 4 Pain scale - at its best (0-10) 1 Pain scale - at its worst (0-10) 7 Ankle/Foot Eval Gait Observation General Gait Pattern Observation Antalgic Gait,Decrease Weight Bear (R) Assistive Device Ambulation Assistive Device Straight Cane Palpation Tenderness right Ankle/Foot Palpation Findings Tenderness Ankle/Foot Palpation Overall Comment 3/4 achilles insertion/sx. incision, 4/4 midfoot ROM Ankle/Foot Dorsiflexion w/Knee Extended 0 Active Range Motion (degrees) Ankle/Foot Dorsiflexion w/Knee Extended 0-5 Passive Range (degrees) Ankle/Foot Plantar Flexion Active Range 0-20 of Motion (degrees) Ankle/Foot Plantar Flexion Passive Range 0-25 of Motion (degrees) Ankle/Foot Eversion Active Range of 0-31 Motion (degrees) Ankle/Foot Inversion Active Range of 0-28 Motion (degrees) MMT Ankle Dorsiflexion Strength Grade 4- Good- Ankle Plantarflexion Strength Grade 4- Good- Foot Eversion Strength Grade 4- Good- Foot Inversion Strength Grade 4 Good Outpatient Therapy Assessment Impairments Problems/Impairmments Palpation Tenderness,Impaired
== END 2023-03-08 09:35 | disposition home or self-care (01) ==
LOC: PT 09:30
PROVIDERS: PCP Internal Medicine; Visit Provider Podiatrist
DX: G89.18 Other acute postprocedural pain (principal); R60.9 Edema, unspecified; Z98.890 Other specified postprocedural states
CPT/HCPCS: 97110; 97140; 97163; 97530